=== PATIENT | female | born 1975 | race Caucasian/White ===

== ENCOUNTER 2025-01-12 21:56 | Inpatient (IN) | payer MEDICARE, OTHER, SELFPAY ==
[2025-01-12 18:29] VITALS: BP 165/89
[2025-01-12 18:32] LABS: Glucose - Point of Care 389 mg/dl (70-99)
[2025-01-12 18:56] LABS: Venous Blood Gas B.E. -1.5 mmol/L (-4 to +4); Venous Blood Gas HCO3 24.3 mmol/L (22-27); Venous Blood Gas O2 Sat % 84.7 %; Venous Blood Gas pCO2 45 mmHg (35-48); Venous Blood Gas pH 7.34 (7.32-7.43); Venous Blood Gas pO2 51 mmHg (30-50)
[2025-01-12 19:02] LABS: Urine Albumin 2+ (Neg - Trace); Urine Bilirubin Negative (Negative); Urine Character Slightly Cloudy (Clear); Urine Color Yellow; Urine Glucose 4+ (Negative); Urine Ketone Negative (Negative); Urine Leukocyte 1+ (Negative); Urine Nitrite Negative (Negative); Urine Occult Blood 1+ (Negative); Urine Urobilinogen Negative (Neg - 1+)
[2025-01-12 19:04] LABS: % Basophils 0.4 % (0-2); % Eosinophils 0.3 % (0-6); % Immature Granulocytes 0.3 % (0-0.5); % Lymphocytes 10.1 % (20.5-51.1); % Monocytes 3.9 % (1.7-9.3); Absolute Basophils 0.1 10^3/uL (0-0.2); Absolute Lymphocytes 1.2 10^3/uL (1.2-3.4); Absolute Monocytes 0.5 10^3/uL (0.1-0.6); Absolute Neutrophils 9.8 10^3/uL (1.4-6.5); Hematocrit 28.8 % (37.0-47.0); Hemoglobin 7.6 g/dL (12.0-16.0); Mean Corp Hgb Conc. 26.4 g/dL (33.0-37.0); Mean Corpuscular Hgb 16.2 pg (27.0-31.0); Mean Corpuscular Volume 61.4 fL (81.0-99.0); Nucleated Red Blood Cells % 0.3 %; Platelet Count 279 10^3/uL (130-400); Red Blood Cell Count 4.69 10^6/uL (4.20-5.40); Red Cell Dist. Width 21.1 % (11.5-14.5); White Blood Cell Count 11.5 10^3/uL (4.8-10.8)
[2025-01-12 19:10] LABS: Lactic Acid 1.9 mmol/L (0.7-2.0)
[2025-01-12 19:11] LABS: ALT (SGPT) 26 U/L (0-35); AST (SGOT) 27 U/L (14-36); Albumin 4.4 g/dl (3.5-5.0); Alkaline Phosphatase 155 U/L (38-126); Blood Urea Nitrogen 6 mg/dl (7-17); Carbon Dioxide 25 mmol/L (22-30); Chloride 102 mmol/L (98-107); Glucose 351 mg/dl (70-99); Potassium 4.4 mmol/L (3.5-5.1); Sodium 135 mmol/L (135-145); Total Bilirubin 0.6 mg/dl (0.2-1.3); Total Protein 8.1 g/dl (6.3-8.2); eGFR > 60.00
[2025-01-12 19:18] LABS: B-Hydroxybutyrate 0.13 mmol/L (0.02-0.27)
[2025-01-12 19:25] LABS: Anisocytosis 1+; Hypochromasia 3+; Microcytosis 4+; Normal RBC Morphology No; Ovalocytes 1+; Poikilocytosis 1+; Polychromasia Slight; Stomatocytes 1+
[2025-01-12] MEDS: NSS 1000 IV ×2 (19:34→23:58)
--- NOTE | 2025-01-12 19:43 | ED.GENMED ---
History of Present Illness
<AMIE Mcneal - Last Filed: 01/12/25 19:54>
General
Chief Complaint: Blood Sugar Problem
Source: patient
Time Seen by Provider: 01/12/25 18:59
History of Present Illness
History of Present Illness:
Pt is a 49 yo F with a PMH of T2DM, GERD, NIKKO, chronic constipation, Hep C w/o coma, Bipolar II, and PTSD who presents to the ED c/o nausea, vomiting, left sided numbness, and elevated blood sugar x 1 day. Patient explains that she started having
migraines 2 weeks ago which she attributed to an increase in her coffee intake and perhaps elevated blood sugars, but she has been without a way to monitor her own blood sugars for roughly 1 month now. She then notes that last night she was at [employer]
and started to feel dizzy and lightheaded. She held on to the counter briefly and then was able to make her way to her car, where she started having profuse projectile vomiting. After 30 minutes or so, she was able to drive home, having to stop
twice along her route to vomit. The vomiting continued throughout the night and into today, she notes the last time she vomited was at 6pm tonight. Her current T2DM regimen includes Metformin and Farxiga after she was unable to continue with
Trulicity due to unavailability. She explains that today she feels as though her entire left side is numb, from head to toe, stating it is a 'pins and needles' type of feeling. She is able to ambulate. She denies sick contacts, questionable food
intake, hematemesis, changes to bowel or bladder habits, dyspnea, or other associated symptoms.
<Giuseppe Langford DO - Last Filed: 01/13/25 01:47>
General
Exam Limitations: none
Past History
<AMIE Mcneal - Last Filed: 01/12/25 19:54>
Past History
ED Past Medical History: NIDDM, Psychiatric and Other
ED Past Surgical History: Gynecological
Social History
Tobacco: Smoker
Alcohol: Occasional
Drug: Former user and IVDA
Personal: Single
Living: with family
Review of Systems
<Marge Quinones [facility] - Last Filed: 01/12/25 19:54>
Review of Systems
All Other Systems: ROS reviewed and negative except as documented in HPI and ROS
Phy Exam
<Marge Quinones, [facility] - Last Filed: 01/12/25 19:54>
General Physical Exam
General Presentation: well appearing
General age: appears stated age
General Skin: warm and dry
General Habitus: normal
General Mental: alert
Cardiovascular Exam
Cardiovascular Exam: regular rate/rhythm
Heart Sounds: normal
Pulmonary Exam
Pulmonary Exam: lungs clear
Gastrointestinal Exam
Gastrointestinal Exam: normal bowel sounds, non tender, soft and no cva tenderness
Neurological Exam
Neurological Exam: alert, oriented x3, speech normal and sensory deficit (decreased sensation on L forearm)
Scores
<Giuseppe Langford, DO - Last Filed: 01/13/25 01:47>
NIH Stroke Score
Level of Consciousness: 0 - Alert
LOC Questions: 0-Answers both correctly
LOC Commands: 0-Performs both correctly
Best Horizontal Gaze: 0-Normal
Visual Arreola: 0=Normal, no visual loss
Facial Palsy: 0=Normal, symmetrical
Motor - Right Arm: 0=No drift 10 seconds
Motor - Left Arm: 0=No drift 10 seconds
Motor - Right Le-No drift 5 seconds
Motor - Left Le-No drift 5 seconds
Limb Ataxia: 0-Absent
Sensation: 1-Mild loss
Best Language: 0-No aphasia
Dysarthria: 0-Normal
Extinction and Inattention: 0-No abnormality
NIH Total Score:: 1
Thrombolytic Contraindication
Inclusion and Exclusion criteria reviewed: Yes
Reasons for NON-Tx with Thrombolytics ABSOLUTE Exclusions: Greater than 4.5 hrs from onset of sxs
IAT Contraindications: NIHSS < 6
Course
<Marge Quinones, [facility] - Last Filed: 01/12/25 19:54>
Orders/Labs/Results
Orders:
Orders
01/12/25 18:46
B-Hydroxybutyrate Urgent
Complete Blood Count/With Diff Urgent
Comprehensive Metabolic Panel Urgent
Lactic Acid Urgent
Venous Blood Gas Urgent
%Oxygen/Room Air: room air
01/12/25 18:56
Urine Microscopic Reflex Cult Urgent
Urine Reflex Culture from UA [Urinalysis Reflex To Culture] Urgent
Date Specimen was Collected: 01/12/25
Time Specimen was Collected: 18:32
Urine Culture Urgent
BETH Source: U
Specimen Description:
Date Specimen was Collected: 01/12/25
Time Specimen was Collected: 18:32
01/12/25 19:17
0.9% Sodium Chloride 1000 ml [Nss] 1,000 ml IV BOLUS
01/12/25 19:18
IV Insert/Care/Rem.- Treatment PRN
01/12/25 19:32
EKG- Treatment ONCE
01/12/25 19:33
Electrocardiogram (*1) Urgent
Reason for Study: TIA/Stroke
01/12/25 19:40
CT Head W/o Iv Contrast Urgent
Comment:
Reason For Exam: left sided numbness
01/12/25 20:37
Aspirin Chewable [Low Strength Aspirin] 324 mg PO NOW STA
Atorvastatin [Lipitor] 40 mg PO NOW STA
Clopidogrel Bisulfate [Plavix] 300 mg PO NOW STA
01/12/25 21:13
ECG [Electrocardiogram (*1)] Routine
Reason for Study: QTc Monitoring
01/12/25 21:27
Admit/Transfer Patient As Directed
Co-Sign Provider:
Level of Care: Inpatient admission
Assign to:: Telemetry
Physician / Group: dina
Diagnosis: subacute CVA
Reason for Telemetry: CVA/TIA
Date to Stop Telemetry: 01/15/25
Time to Stop Telemetry: 11:00
Reason for Hospitalization: CVA
Expected length of stay greater than two midnights?: Yes
ELOS- Estimated Length of Stay in days: 2
I certify the patient meets the requirements for IP care: Yes
PRN Pain Medication Management As Directed
May give lesser potent ordered pain med per pt: Yes
preference::
Protocol:: Medication orders for pain may be administered in a
manner that supports deferring to patient preference
when the pt is:
- Requesting an ordered lesser potent pain medication.
Least to most potent pain medications are defined
as: acetaminophen < NSAID < tramadol < opioids
(morphine, oxycodone, hydromorphone).
- Requesting a lesser dose of the same medication IF
ORDERED.
- Requesting a less intrusive route of administration
if both routes are prescribed by the provider (PO <
IV).
01/12/25 21:29
Code Status As Directed
Resuscitation Status: Full Code
01/12/25 22:00
Flush (0.9% Sodium Chloride) [Flush (Nss)] See Dose Instructions IV PER PROTOCOL
01/12/25 22:57
0.9% Sodium Chloride 1000 ml [Nss] 1,000 ml IV 100 mls/hr
Acetaminophen [Tylenol/Feverall] 650 mg RECTAL Q4HPRN PRN
Acetaminophen [Tylenol] 650 mg PO Q4HPRN PRN
Clonidine [Catapres] 0.1 mg PO HS
Labetalol HCl [Trandate] 10 mg IV Q6HPRN PRN
Metoclopramide [Reglan] 10 mg IV Q6HPRN PRN
01/12/25 22:57
Echo 2D MMode Color/Doppler Routine
Reason for Study: stroke/TIA
Case Management Consult ONCE
Case Management Consult: Discharge Planning
Comment: stroke/tia
DIETARY IP CONSULT Routine
Reason for Consult: stroke/TIA
NEUROLOGY CONSULT Urgent
Consulting Provider: Reilly Hardy
Was physician already notified: Yes
Bread Pan Greaser Urgent
MR Brain Without Contrast Routine
Comment:
Reason For Exam: stroke/TIA
Recent pill cam endoscopy?: No
Activity As Directed
Activity Level: With Assistance
Bedside Glucose Monitoring As Directed
Frequency: AC&HS
NIH Stroke Scale As Directed
Directions: Per protocol
Comment: every shift and with any change in condition or mental status
Neurological Checks As Directed
Frequency: q4h
Additional Instructions:: q4h x 24h upon admission to the floor, then qshift & with any change in condition
and mental status
Patient Education As Directed
Type: Stroke education packet
Comment: provide to patient and family
Pneumatic Compression Sleeves As Directed
Type: Knee high
Swallow Screening CVA/TIA ONLY As Directed
Comment: NPO until swallowing screening completed
If patient FAILS swallow screening:: NPO, Speech Therapy consult, Aspiration Precautions
If patient PASSES swallow screening, diet:: 1800 josue/ 15 CHO Diabetic
Above diet order entered?: Yes- passed screening
Vital Signs As Directed
Frequency: Per unit guidelines
Ot Eval And Treat Routine
Pt Eval And Treat Routine
Activity Level: As Tolerated
Speech Therapy Eval & Treat Routine
US Cerebrovascular Routine
Comment:
Reason For Exam: stroke/TIA
DX Deep Vein Thrombosis Video Routine
01/12/25 23:00
Quetiapine Fumarate [Seroquel] 100 mg PO HS
01/13/25 06:00
Type+Screen IN AM
Basic Metabolic Panel IN AM
Cardiovascular Evaluation IN AM
Complete Blood Count/No Diff IN AM
Ferritin IN AM
Glycohemoglobin (HgbA1c) IN AM
Iron IN AM
Magnesium IN AM
Total Iron Binding IN AM
01/13/25 07:30
Insulin Aspart Corrective Mod [Novolog Flexpen-Moderate Resistance] See Protocol SC AC
01/13/25 08:00
Aspirin Chewable [Low Strength Aspirin] 81 mg PO DAILY
Clopidogrel Bisulfate [Plavix] 75 mg PO DAILY
Lamotrigine [Lamictal] 200 mg PO DAILY
[place] Carbonate Ext. Release [Eskalith ER (Extended Release)] 450 mg PO BID
METFORMIN HCl [Glucophage] 500 mg PO BID@0800,1700
Methadone HCl [Methadone 100 mg/10 ml] 100 mg PO DAILY
01/13/25 18:00
Atorvastatin [Lipitor] 80 mg PO QPM
01/15/25 11:00
DC Protocol for Telemetry ONCE
Abnormal Lab Results
01/12/25 01/12/25 01/12/25
18:30 18:46 18:56
WBC 11.5 H 10^3/uL
(4.8-10.8)
Hgb 7.6 L g/dL
(12.0-16.0)
Hct 28.8 L %
(37.0-47.0)
MCV 61.4 L fL
(81.0-99.0)
MCH 16.2 L pg
(27.0-31.0)
MCHC 26.4 L g/dL
(33.0-37.0)
RDW 21.1 H %
(11.5-14.5)
Absolute Neuts (auto) 9.8 H 10^3/uL
(1.4-6.5)
Neutrophils % 85.0 H %
(42.2-75.2)
Lymphocytes % 10.1 L %
(20.5-51.1)
VBG pO2 51 H mmHg
(30-50)
BUN 6 L mg/dl
(7-17)
Glucose 351 H mg/dl
(70-99)
Alkaline Phosphatase 155 H U/L
(38-126)
Ur Occult Blood Reflex 1+ A
(Negative)
Leukocyte Esterase Rfl 1+ A
(Negative)
Urine RBC 3-6 A /HPF
(0-2)
Urine Glucose 4+ A
(Negative)
Urine Albumin (Reflex) 2+ A
(Neg - Trace)
POC Glucose 389 H mg/dl
(70-99)
01/12/25 18:46
01/12/25 18:46
Vital Signs
Initial and Last Documented VS:
Initial Vital Signs
Temp Pulse Resp BP Pulse Ox
98.2 F 111 20 165/89 98
01/12/25 18:29 01/12/25 18:29 01/12/25 18:29 01/12/25 18:29 01/12/25 18:29
Last Documented Vital Signs
Temp Pulse Resp BP Pulse Ox
98.7 F 75 18 143/65 98
01/12/25 23:16 01/12/25 23:28 01/12/25 23:16 01/12/25 23:28 01/12/25 23:16
Randolphlt;Giuseppe Langford, DO - Last Filed: 01/13/25 01:47>
Orders/Labs/Results
Orders:
Orders
01/12/25 18:46
B-Hydroxybutyrate Urgent
Complete Blood Count/With Diff Urgent
Comprehensive Metabolic Panel Urgent
Lactic Acid Urgent
Venous Blood Gas Urgent
%Oxygen/Room Air: room air
01/12/25 18:56
Urine Microscopic Reflex Cult Urgent
Urine Reflex Culture from UA [Urinalysis Reflex To Culture] Urgent
Date Specimen was Collected: 01/12/25
Time Specimen was Collected: 18:32
Urine Culture Urgent
BETH Source: U
Specimen Description:
Date Specimen was Collected: 01/12/25
Time Specimen was Collected: 18:32
01/12/25 19:17
0.9% Sodium Chloride 1000 ml [Nss] 1,000 ml IV BOLUS
01/12/25 19:18
IV Insert/Care/Rem.- Treatment PRN
01/12/25 19:32
EKG- Treatment ONCE
01/12/25 19:33
Electrocardiogram (*1) Urgent
Reason for Study: TIA/Stroke
01/12/25 19:40
CT Head W/o Iv Contrast Urgent
Comment:
Reason For Exam: left sided numbness
01/12/25 20:37
Aspirin Chewable [Low Strength Aspirin] 324 mg PO NOW STA
Atorvastatin [Lipitor] 40 mg PO NOW STA
Clopidogrel Bisulfate [Plavix] 300 mg PO NOW STA
01/12/25 21:13
ECG [Electrocardiogram (*1)] Routine
Reason for Study: QTc Monitoring
01/12/25 21:27
Admit/Transfer Patient As Directed
Co-Sign Provider:
Level of Care: Inpatient admission
Assign to:: Telemetry
Physician / Group: dina
Diagnosis: subacute CVA
Reason for Telemetry: CVA/TIA
Date to Stop Telemetry: 01/15/25
Time to Stop Telemetry: 11:00
Reason for Hospitalization: CVA
Expected length of stay greater than two midnights?: Yes
ELOS- Estimated Length of Stay in days: 2
I certify the patient meets the requirements for IP care: Yes
PRN Pain Medication Management As Directed
May give lesser potent ordered pain med per pt: Yes
preference::
Protocol:: Medication orders for pain may be administered in a
manner that supports deferring to patient preference
when the pt is:
- Requesting an ordered lesser potent pain medication.
Least to most potent pain medications are defined
as: acetaminophen < NSAID < tramadol < opioids
(morphine, oxycodone, hydromorphone).
- Requesting a lesser dose of the same medication IF
ORDERED.
- Requesting a less intrusive route of administration
if both routes are prescribed by the provider (PO <
IV).
01/12/25 21:29
Code Status As Directed
Resuscitation Status: Full Code
01/12/25 22:00
Flush (0.9% Sodium Chloride) [Flush (Nss)] See Dose Instructions IV PER PROTOCOL
01/12/25 22:57
0.9% Sodium Chloride 1000 ml [Nss] 1,000 ml IV 100 mls/hr
Acetaminophen [Tylenol/Feverall] 650 mg RECTAL Q4HPRN PRN
Acetaminophen [Tylenol] 650 mg PO Q4HPRN PRN
Clonidine [Catapres] 0.1 mg PO HS
Labetalol HCl [Trandate] 10 mg IV Q6HPRN PRN
Metoclopramide [Reglan] 10 mg IV Q6HPRN PRN
01/12/25 22:57
Echo 2D MMode Color/Doppler Routine
Reason for Study: stroke/TIA
Case Management Consult ONCE
Case Management Consult: Discharge Planning
Comment: stroke/tia
DIETARY IP CONSULT Routine
Reason for Consult: stroke/TIA
NEUROLOGY CONSULT Urgent
Consulting Provider: Reilly Hardy
Was physician already notified: Yes
Bread Pan Greaser Urgent
MR Brain Without Contrast Routine
Comment:
Reason For Exam: stroke/TIA
Recent pill cam endoscopy?: No
Activity As Directed
Activity Level: With Assistance
Bedside Glucose Monitoring As Directed
Frequency: AC&HS
NIH Stroke Scale As Directed
Directions: Per protocol
Comment: every shift and with any change in condition or mental status
Neurological Checks As Directed
Frequency: q4h
Additional Instructions:: q4h x 24h upon admission to the floor, then qshift & with any change in condition
and mental status
Patient Education As Directed
Type: Stroke education packet
Comment: provide to patient and family
Pneumatic Compression Sleeves As Directed
Type: Knee high
Swallow Screening CVA/TIA ONLY As Directed
Comment: NPO until swallowing screening completed
If patient FAILS swallow screening:: NPO, Speech Therapy consult, Aspiration Precautions
If patient PASSES swallow screening, diet:: 1800 josue/ 15 CHO Diabetic
Above diet order entered?: Yes- passed screening
Vital Signs As Directed
Frequency: Per unit guidelines
Ot Eval And Treat Routine
Pt Eval And Treat Routine
Activity Level: As Tolerated
Speech Therapy Eval & Treat Routine
US Cerebrovascular Routine
Comment:
Reason For Exam: stroke/TIA
DX Deep Vein Thrombosis Video Routine
01/12/25 23:00
Quetiapine Fumarate [Seroquel] 100 mg PO HS
01/13/25 06:00
Type+Screen IN AM
Basic Metabolic Panel IN AM
Cardiovascular Evaluation IN AM
Complete Blood Count/No Diff IN AM
Ferritin IN AM
Glycohemoglobin (HgbA1c) IN AM
Iron IN AM
Magnesium IN AM
Total Iron Binding IN AM
01/13/25 07:30
Insulin Aspart Corrective Mod [Novolog Flexpen-Moderate Resistance] See Protocol SC AC
01/13/25 08:00
Aspirin Chewable [Low Strength Aspirin] 81 mg PO DAILY
Clopidogrel Bisulfate [Plavix] 75 mg PO DAILY
Lamotrigine [Lamictal] 200 mg PO DAILY
[place] Carbonate Ext. Release [Eskalith ER (Extended Release)] 450 mg PO BID
METFORMIN HCl [Glucophage] 500 mg PO BID@0800,1700
Methadone HCl [Methadone 100 mg/10 ml] 100 mg PO DAILY
01/13/25 18:00
Atorvastatin [Lipitor] 80 mg PO QPM
01/15/25 11:00
DC Protocol for Telemetry ONCE
Abnormal Lab Results
01/12/25 01/12/25 01/12/25
18:30 18:46 18:56
WBC 11.5 H 10^3/uL
(4.8-10.8)
Hgb 7.6 L g/dL
(12.0-16.0)
Hct 28.8 L %
(37.0-47.0)
MCV 61.4 L fL
(81.0-99.0)
MCH 16.2 L pg
(27.0-31.0)
MCHC 26.4 L g/dL
(33.0-37.0)
RDW 21.1 H %
(11.5-14.5)
Absolute Neuts (auto) 9.8 H 10^3/uL
(1.4-6.5)
Neutrophils % 85.0 H %
(42.2-75.2)
Lymphocytes % 10.1 L %
(20.5-51.1)
VBG pO2 51 H mmHg
(30-50)
BUN 6 L mg/dl
(7-17)
Glucose 351 H mg/dl
(70-99)
Alkaline Phosphatase 155 H U/L
(38-126)
Ur Occult Blood Reflex 1+ A
(Negative)
Leukocyte Esterase Rfl 1+ A
(Negative)
Urine RBC 3-6 A /HPF
(0-2)
Urine Glucose 4+ A
(Negative)
Urine Albumin (Reflex) 2+ A
(Neg - Trace)
POC Glucose 389 H mg/dl
(70-99)
01/12/25 18:46
01/12/25 18:46
Vital Signs
Initial and Last Documented VS:
Initial Vital Signs
Temp Pulse Resp BP Pulse Ox
98.2 F 111 20 165/89 98
01/12/25 18:29 01/12/25 18:29 01/12/25 18:29 01/12/25 18:29 01/12/25 18:29
Last Documented Vital Signs
Temp Pulse Resp BP Pulse Ox
98.7 F 75 18 143/65 98
01/12/25 23:16 01/12/25 23:28 01/12/25 23:16 01/12/25 23:28 01/12/25 23:16
<Giuseppe Langford DO - Last Filed: 01/13/25 01:47>
MDM/Problems Addressed
Differential Diagnosis Includes:
Intracranial hemorrhage, CVA, DKA
MDM/Problems Addressed:
49-year-old female with acute/subacute CVA, left cerebellum. No signs of hemorrhage. Discussed with neurology, Dr. Hardy. Recommends dual antiplatelet therapy, loading dose of Plavix 300 and Lipitor. Patient is already taking Lipitor 60 mg.
Chronic conditions affecting care: DM
Acute Exacerbation and/or Progression of Chronic Illness: DM
<AMIE Mcneal - Last Filed: 01/12/25 19:54>
*Critical Care Note
Total Time (30-74mins, 75-104mins- exclusive of procedures): Not Applicable
<Giuesppe Langford DO - Last Filed: 01/13/25 01:47>
*Radiology
Radiology exam reviewed: radiology read reviewed (CT head shows left cerebellar infarct)
*Pulse Oximetry
Patient hypoxic: no
*EKG
Interpreted by ED Provider?: Yes
EKG Intrepretation Date: 01/12/25
EKG Intrepretation Time: 20:27
Interpretation: normal
Comparison EKG: no changes
Heart Rate: 82
Rate: normal
Rhythm: sinus
Steens: normal axis
Interval: normal interval
QRS Pattern: normal QRS
Ischemia: no ischemia
*Bakery Demonstrator Interpretation
Rate: normal
Interpretation: normal
Heart Rate: 80
Rhythm: sinus
Data Reviewed
Review of Other/Old Records Reveals: Labs (prior Hb 15.4 on 08/01/20)
Source: records
Prescriptions/Medications Considered But Not Given:
TNK not indicated due to timing
Further Testing Considered But Not Given:
cta not indicated
<Giuseppe Langford, DO - Last Filed: 01/13/25 01:47>
Patient Management
Social determinants of health affecting care: Living situation, Substance abuse and Strong social support
Discussion with other providers: Hospitalist and Career Technical Education Instructor (neurology)
Escalation/DeEscalation of care consider admission/obs:
admit indicated
ED Attending Note
<AMIE Mcneal - Last Filed: 01/12/25 19:54>
-
Portions of this chart may have been created with voice recognition software.� Occasional wrong word or��sound alike� substitutions may have occurred due to the inherent limitations of voice recognition software.
Discharge Plan
Departure
Patient Disposition: Admit
Date of Disposition: 01/12/25
Time of Disposition: 20:33
Admit to: Telemetry
Presentation/result/management discussed w/ accepting MD/DO: Hospitalist
Patient with high blood pressure during this ER visit?: Yes
Condition: Good
Discharge Problem:
Acute cerebrovascular accident of cerebellum
Interventions
Interventions:
*Risk Screen - Suicide Last Done: 01/12/25 23:41
*General Assessment Last Done: 01/12/25 18:29
*Neglect/Abuse Screening Last Done: 01/12/25 19:36
*ED- Fall Risk Assessment Last Done: 01/12/25 19:36
*ED COVID-19 Vaccine History Last Done: 01/12/25 23:41
*Nursing Disposition Last Done: 01/12/25 22:53
ED- Neurological Assessment Last Done: 01/12/25 20:49
Discharge Date and Time
Discharge Date/Time: 01/12/25 22:53
[2025-01-12] MEDS: PLAVIX 300 MG PO (21:04)
[2025-01-12] MEDS: LOW STRENGTH ASPIRIN 324 MG PO (21:04)
--- NOTE | 2025-01-12 21:13 | HPS.HSE ---
Family Physician
-
Family Physician: Adele Harrington
Chief Complaint
-
Elevated blood glucose
History of Present Illness
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
checking blood sugar and finding that it was elevated in the setting of episode of dizziness and continuous vomiting.
Patient reported she had a sudden episode of dizziness starting at around 8 PM yesterday. She reports spinning sensation afterwards. Tyrone reported left sided numbness and tingling throughout whole body. This was associated with vomiting episode.
She went home and she continued to vomit overnight. This morning she checked her blood sugar and it was elevated over 300. She said to come to the emergency department for evaluation. She did not have any further episodes of the dizziness. She
reports that the dizziness was associated with vertigo when it occurred yesterday at 8 PM. She is able to ambulate without difficulty. She denies any focal weakness or numbness. She denies any fevers or chills.
She was previously on trulicity but has not taken this for several months due to pharmacy shortages/insurance.
She reported episodes of migraine that started about 2 weeks ago appears to be ocular migraines associated with some vision changes. She has not had such episodes today.
In the emergency department she was hypertensive with a blood pressure of 165/89, pulse rate of 89 she was satting 98% on room air with a temperature of 90.2.
Her hemoglobin was 7.6, white count was normal platelet count was normal. Electrolytes BUN/creatinine were all normal with no anion gap. Glucose was elevated at 351. UA was unremarkable and had no ketones. Beta-hydroxybutyrate was negative.
CT of the head showed possible subacute left cerebral infarct.
Medical History
Past Medical History
Past Medical History: Reports Hypercholesterolemia, NIDDM and Psychiatric (Bipolar)
Additional Past Medical History:
Prior history of IV heroin use now on methadone
Past Surgical History: Reports Gynocological (Tubal ligation)
Social History
Tobacco: Smoker
Alcohol: None
Drug: None
Personal: Single
Living: With Roomate
Family History
Family History: Not pertinent
Allergies / Home Medications
Allergies reflects when Allergies were last updated in [facility].
Home Medications with original date entered in [facility]
Allergy/Medication List:
Allergies
Allergy/AdvReac Type Severity Reaction Status Date / Time
No Known Allergies Allergy Verified 01/12/25 18:29
Home Medications
Metformin 500 mg tablet, 500 mg p.o. at bedtime
Atorvastatin 80 mg tablet, 80 mg p.o. at bedtime
[place] carbonate extended release 450 mg tablet, 50 mg p.o. twice daily
Lamotrigine 100 mg tablet, 100 mg p.o. daily
Quetiapine 200 mg tablet, 200 mg p.o. at bedtime
Clonidine 0.1 mg tablets, 0.1 mg p.o. at bedtime
Methadone 100 mg tablet, 100 mg p.o. daily
Review of Systems
-
History Source: Patient
Constitutional: Reports No Symptoms
EENT: Reports No Symptoms
Respiratory: Reports No Symptoms
Cardiac: Reports No Symptoms
Abdomen/GI: Reports Nausea
: Reports No Symptoms
Musculoskeletal: Reports No Symptoms
Skin: Reports No Symptoms
Neurological: Reports Dizzy
Endocrine: Reports No Symptoms
Hematologic/Lymphatic: Reports No Symptoms
Psych: Reports No Symptoms
Physical Exam
Vital Signs
Vital Signs
Temp Pulse Resp BP Pulse Ox
98.2 F 89 17 165/89 98
01/12/25 18:29 01/12/25 19:39 01/12/25 19:39 01/12/25 18:29 01/12/25 20:49
Physical Exam
General: Well Developed, Well Nourished, No Apparent Distress and Comfortable
HEENT: NormoCephalic, Anicteric, Moist mucous membranes and Atraumatic
Respiratory: Clear
Cardiac: S1/S2 and Regular Rhythm
Breast: Deferred by me
GI: Soft, Non Tender, Non Distended and Normal Bowel Sounds
Rectal: Deferred by Provider
Genito-urinary: Deferred by me
Musculoskeletal: No Clubbing, No Cyanosis and No Edema
Skin: No Rash
Neuro: AO x 3, No Motor Deficits and Cranial Nerves Intact; No Slurred Speech, Facial Droop or Tremors
Hematologic/Lymphatic: No Lymphadenopathy
Psych: Calm
Laboratory Results
-
01/12/25 18:46
01/12/25 18:46
Laboratory Results
Lactic Acid 1.9 mmol/L (0.7-2.0) 01/12/25 18:46
Total Bilirubin 0.6 mg/dl (0.2-1.3) 01/12/25 18:46
AST 27 U/L (14-36) 01/12/25 18:46
ALT 26 U/L (0-35) 01/12/25 18:46
Alkaline Phosphatase 155 U/L (38-126) H 01/12/25 18:46
Data Reviewed
-
CT Scan: Report Reviewed by me
Lab Data: Labs Reviewed by me
Old Records: Reviewed
Impression/Plan
-
IMPRESSION:
49 y.o with history of diabetes, hyperlipidemia, bipolar d/o, former opioid dependence now on methadone presenting with dizziness starting 8-9pm yesterday, associated nausea vomiting and found to have hyperglycemia and L cerebellar cva.
PLAN:
1. Cerebellar stroke - Presumed onset about 24 hours ago. Now NIHSS = 0. Able to ambulate without dizziness or vertigo and no nausea at this moment.
- admit to telemetry
- out of window and minimal symptoms, no TNK
- starting aspirin, plavix
- continue atorvastatin 80
- mri in am
- vascular/embolic eval with mr sokaogon of thao and mra neck.
- echo
- lipid panel and ac
- pt
- neurology consult.
2. Hyperglycemia - Non-compliance. No DKA.
- IV fluids overnight
- insulin sliding scale
- a1c
- likely start on insulin 10 hs
- continue with metformin bid for now
3. Anemia - microcytic, likely iron deficiency
- iron panel, ferritin
- likely outpatient colonoscopy
4. Opioid dependence
- ecg
- continue methadone 100 daily
5. Bipolar
- continue lithium hs, lamictal am, quetiapine and clonidine hs
DVT PPX - SCDs
Code status - Full Code
[2025-01-12 23:16] VITALS: BP 143/65; BMI 38.3
[2025-01-12] MEDS: SEROQUEL 100 MG PO (23:25)
[2025-01-12] MEDS: CATAPRES 0.1 MG PO (23:28)
[2025-01-13] VITALS (13 sets, daily range): BP systolic 97–147; BP diastolic 49–81; PULSE 79; O2SAT 99
--- NOTE | 2025-01-13 01:03 | PTCARENOTE ---
2300- pt admitted to 406-1, placed on tele #6. NIH-1 for decrease sensation LT side from head down, pt states notable increase in loss of sensation once you reach the LT elbow, over all mild loss. Pt oriented to room, call diallo, and POC. pt verb
understanding. admission assessment completed
[2025-01-13] MEDS: TYLENOL 650 MG PO ×3 (03:25→22:16)
[2025-01-13 07:00] LABS: Hematocrit 23.8 % (37.0-47.0); Hemoglobin 6.3 g/dL (12.0-16.0); Mean Corp Hgb Conc. 26.5 g/dL (33.0-37.0); Mean Corpuscular Hgb 16.2 pg (27.0-31.0); Mean Corpuscular Volume 61.3 fL (81.0-99.0); Mean Platelet Volume 9.5 fL (7.4-10.4); Platelet Count 242 10^3/uL (130-400); Red Blood Cell Count 3.88 10^6/uL (4.20-5.40); Red Cell Dist. Width 20.7 % (11.5-14.5); White Blood Cell Count 9.8 10^3/uL (4.8-10.8)
[2025-01-13 07:19] LABS: Blood Urea Nitrogen 7 mg/dl (7-17); Calcium 8.8 mg/dl (8.4-10.2); Carbon Dioxide 25 mmol/L (22-30); Chloride 108 mmol/L (98-107); Estimated Creatinine Clearance > 125 ml/min; Glucose 204 mg/dl (70-99); HDL Cholesterol 30 mg/dl; Iron 26 ug/dl (37-170); LDL Cholesterol, Calculated 60 mg/dl; Magnesium 1.9 mg/dl (1.6-2.3); Potassium 3.9 mmol/L (3.5-5.1); Sodium 136 mmol/L (135-145); Total Cholesterol 130 mg/dl (50-199); Triglyceride 200 mg/dl (10-149); Very Low Density Lipoprotein 40 mg/dl (0-30); eGFR > 60.00
[2025-01-13 07:28] LABS: Percent Saturation 6 % (20-50); Total Iron Binding Capacity 422 ug/dl (265-497)
[2025-01-13 07:47] LABS: Ferritin 9.2 ng/ml (6.24-137)
[2025-01-13] MEDS: LAMICTAL PO (08:48)
[2025-01-13] MEDS: ESKALITH ER (EXTENDED RELEASE) PO (08:48)
[2025-01-13 08:54] LABS: Reticulocyte Count 1.8 % (0.4-2.8)
[2025-01-13 09:34] LABS: Glycohemoglobin (HgbA1c) 9.2 % (4.0-5.6)
[2025-01-13 09:39] LABS: Glucose - Point of Care 253 mg/dl (70-99)
[2025-01-13] MEDS: FEOSOL 325 MG PO (10:15)
[2025-01-13] MEDS: PLAVIX 75 MG PO (10:15)
[2025-01-13] MEDS: LOW STRENGTH ASPIRIN 81 MG PO (10:15)
[2025-01-13] MEDS: NOVOLOG FLEXPEN-MODERATE RESISTANCE 5 UNITS SC (10:15)
[2025-01-13] MEDS: METHADONE 100 MG/10 ML PO (10:18)
[2025-01-13 10:36] LABS: Vitamin B12 508 pg/ml (239-931)
--- NOTE | 2025-01-13 11:38 | W.PN.HOSP.TC ---
Today's Communication/Plan
-
prbc 1u today
iv iron
asa/plavix
neurology recs
neurocheck
Assessment / Plan
Assessment / Plan
IMPRESSION:
49 y.o with history of diabetes, hyperlipidemia, bipolar d/o, former opioid dependence now on methadone presenting with dizziness starting 8-9pm yesterday, associated nausea vomiting and found to have hyperglycemia and L cerebellar cva.
PLAN:
Large Acute CVA left cerebellum. Mild petechial hemorrhage
Right cerebellum infarcts x 2
- out of window no TNK
- starting aspirin, plavix
- continue atorvastatin 80
- mri brain noted
- echo-EF 55-60%. Interartial septum is intact w/no evidence of shunting by color flow doppler.
- LDL at 60. A1c 9.2.
- pt/ot
- BP well controlled as already on clonidine as outpatient 128/54
- neurology consult.
Diabetes mellitus type 2 uncontrolled
-A1c at 9.2
-Increase metformin to 1000 mg twice daily
- started patient on glipizide
-Accu-Cheks and monitor POC
-Adjust regimen as needed
Anemia - microcytic, likely iron deficiency
- Severe iron deficiency noted. Patient states of chronic anemia.
- Denies any blood in urine or stool. Patient is due for colonoscopy. Denies any change in consistency of bm. Denies any weight loss.
- Start patient IV iron
- Hemoglobin of 6.3 will transfuse 1 unit of PRBC today.
- likely outpatient colonoscopy
Opioid dependence On daily basis
- ecg QTc of 453
- continue methadone 100 mg daily
Bipolar disorder
- continue lithium hs, lamictal am, quetiapine and clonidine hs
daily tobacco abuse
-Smokes 1 pack a day
-Nicotine patch offered
-Counseled on complete tobacco cessation. Patient verbalized understanding.
Morbid obesity due to excess calories
affects all aspect of medical care
DVT PPX - SCDs
Code status - Full Code
Anticipated Discharge: > 48 hours
Subjective/Interval History
-
Date of Service: January 13, 2025
states of left side decrease sensation
no nausea or vomiting
states not compliant with her health as outpatient
Objective Data
-
Labs:
Laboratory Results
01/13/25
06:06
WBC 9.8
Hgb 6.3 L*
Hct 23.8 L
Plt Count 242
Sodium 136
Potassium 3.9
Chloride 108 H
Carbon Dioxide 25
BUN 7
Creatinine 0.6
Glucose 204 H
Calcium 8.8
Vital Signs:
Vital Signs
Temp Pulse Resp BP Pulse Ox
98.2 F 80 18 128/54 97
01/13/25 07:00 01/13/25 07:00 01/13/25 07:00 01/13/25 07:00 01/13/25 07:00
I&O
01/12/25 01/13/25 01/14/25
06:59 06:59 06:59
Intake Total 1700 / 1700
Balance 1700 / 1700
Physical Exam
-
General: Well Developed, No Apparent Distress and Morbidly Obese
HEENT: Normocephalic, Atraumatic and Moist Mucous Membranes
Respiratory: Clear to Auscultation
Cardiac: Regular Rhythm and S1/S2; Negative Murmur, Rub or Gallop
GI: Soft, Nontender, Nondistended and Normal Bowel Sounds; Negative Organomegaly
Rectal: Deferred by Provider
Musculoskeletal: No Clubbing, No Cyanosis and No Edema
Skin: Other (diffuse body tattoo noted); Negative Rash
Neuro: Awake, Alert, Oriented, AO x 3, Nonfocal/Grossly Intact and Other (dec sensation left side. Gait intact. ); Negative Tremors, Sedated, Slurred Speech or Facial Droop
Psych: Calm
Data Reviewed
-
Total Time Spent with Patient (in minutes): 60
[2025-01-13] MEDS: ESKALITH ER (EXTENDED RELEASE) 450 MG PO ×2 (11:52→21:39)
[2025-01-13] MEDS: LAMICTAL 200 MG PO (11:52)
[2025-01-13] MEDS: NICODERM TRANSDERMAL 14 MG TRANSDERM (11:53)
--- NOTE | 2025-01-13 12:12 | CON.NEURO ---
Neuro Assessment/Plan
Assessment
stroke, Due to L vertebral artery occlusion
Brain MRI imgs rev'd with patient, mainly left cerebellum with some scattered emboli in the right cerebellum and bilateral occipital cortex
Report reviewed, L vertebral no flow. and I believe the DWI+ occipital lesions are real given presence of visual symptoms on history.
carotid ultrasound was normal
Plan
no intervention on left vertebral.
As per NICOLE, ASA 81, Lipitor 80, and 90 days of Plavix
transfuse as per hospitalist
Consultation
Order
Date of Consultation: 01/13/25
Requesting Provider: Junito Roy
Reason for Consult: Stroke
Subjective/Objective
Subjective Data
Date of Service: January 13, 2025
from h&p
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
checking blood sugar and finding that it was elevated in the setting of episode of dizziness and continuous vomiting.
Patient reported she had a sudden episode of dizziness starting at around 8 PM yesterday. She reports spinning sensation afterwards. Tyrone reported left sided numbness and tingling throughout whole body. This was associated with vomiting episode.
She went home and she continued to vomit overnight. This morning she checked her blood sugar and it was elevated over 300. She said to come to the emergency department for evaluation. She did not have any further episodes of the dizziness. She
reports that the dizziness was associated with vertigo when it occurred yesterday at 8 PM. She is able to ambulate without difficulty. She denies any focal weakness or numbness. She denies any fevers or chills.
This morning, She reports visual blotches prior to the dizziness; the visual symptoms and dizziness are resolved; left sided numbness in her forearm and hand and left lower torso and leg and persist.
She is also anemic and needing a transfusion
Objective Data
Vital Signs
Temp Pulse Resp BP Pulse Ox
36.8 C 80 18 128/54 97
01/13/25 07:00 01/13/25 07:00 01/13/25 07:00 01/13/25 07:00 01/13/25 07:00
Lab Results
01/13/25 06:06
01/13/25 06:06
Sodium 136 mmol/L (135-145) 01/13/25 06:06
Potassium 3.9 mmol/L (3.5-5.1) 01/13/25 06:06
BUN 7 mg/dl (7-17) 01/13/25 06:06
Glucose 204 mg/dl (70-99) H 01/13/25 06:06
Calcium 8.8 mg/dl (8.4-10.2) 01/13/25 06:06
LDL Cholesterol, Calc 60 mg/dl 01/13/25 06:06
Vitamin B12 508 pg/ml (239-931) 01/13/25 06:06
Patient Allergies
No Known Allergies Allergy (Verified 01/12/25 18:29)
Physical Exam
-
AAOx3, speech clear, language intact
VFF, EOMI, face symmetric
full strength b/l UE/LE
decreased Temp/vibration left side
L hand ataxia
Medications
-
Active Medications
Generic Name Dose Route Start Last Admin
Trade Name Freq PRN Reason Stop Dose Admin
Acetaminophen 650 mg 01/12/25 22:57
Acetaminophen 650 Mg Rectal Suppository RECTAL 02/09/25 22:56
Q4HPRN PRN
TANG, mild pain, or temp >100.4F
Acetaminophen 650 mg 01/12/25 22:57 01/13/25 03:25
Acetaminophen 325 Mg Tablet PO 02/09/25 22:56 650 mg
Q4HPRN PRN Administration
TANG, mild pain, or temp >100.4F
Aspirin 81 mg 01/13/25 08:00 01/13/25 10:15
Aspirin 81 Mg Chewable Tablet PO 02/10/25 07:59 81 mg
DAILY LETITIA Administration
Atorvastatin Calcium 80 mg 01/13/25 18:00
Atorvastatin (Lipitor) 80 Mg Tablet PO 02/10/25 17:59
QPM LETITIA
Clonidine HCl 0.1 mg 01/13/25 22:00
Clonidine 0.1 Mg Tablet PO 02/10/25 21:59
HS LETITIA
Clopidogrel Bisulfate 75 mg 01/13/25 08:00 01/13/25 10:15
Clopidogrel 75 Mg Tablet PO 02/10/25 07:59 75 mg
DAILY LETITIA Administration
Dextrose 12.5 grams 01/12/25 23:00
Dextrose 50% (0.5 Grams/Ml) 50 Ml Syringe IV 02/09/25 22:59
Q13FHWR PRN
hypoglycemia
Protocol
Glipizide 2.5 mg 01/13/25 17:00
Glipizide 5 Mg Regular Release Tablet PO 02/10/25 16:59
BID@0800,1700 LETITIA
Glucagon 1 mg 01/12/25 23:00
Glucagon 1 Mg Vial IM 02/09/25 22:59
PRN PRN
hypoglycemia - no IV access
Protocol
Ferric Sodium Gluconate 110 mls @ 110 mls/hr 01/14/25 14:00
Complex 125 mg/ Sodium IV 01/18/25 14:59
Chloride DAILY@1400 LETITIA
Insulin Aspart 0 units 01/13/25 07:30 01/13/25 10:15
Insulin Aspart Moderate Resistance 300 Units/3 Ml Pen.Injctr SC 02/10/25 07:29 5 units
AC LETITIA Administration
Protocol
Labetalol HCl 10 mg 01/12/25 22:57
Labetalol Hcl 5 Mg/1 Ml (20 Mg/4 Ml) Injection IV 02/09/25 22:56
Q6HPRN PRN
for SBP > 180
Lamotrigine 200 mg 01/13/25 08:00 01/13/25 11:52
Lamotrigine 100 Mg Tablet PO 02/10/25 07:59 200 mg
DAILY LETITIA Administration
[place] Carbonate 450 mg 01/13/25 08:00 01/13/25 11:52
[place] Carbonate 450 Mg Extended Release Tablet PO 02/10/25 07:59 450 mg
BID LETITIA Administration
Metformin HCl 1,000 mg 01/13/25 17:00
Metformin 500 Mg Regular Release Tablet PO 02/10/25 16:59
BID@0800,1700 LETITIA
Methadone HCl 100 mg 01/13/25 08:00 01/13/25 10:18
Methadone Oral Liquid (100 Mg/10 Ml) Cup PO 01/27/25 07:59 100 mg
DAILY LETITIA Administration
Metoclopramide HCl 10 mg 01/12/25 22:57
Metoclopramide 10 Mg/2 Ml Vial IV 02/09/25 22:56
Q6HPRN PRN
nausea/vomiting
Nicotine 14 mg 01/13/25 10:20 01/13/25 11:53
Nicotine 14 Mg Patch TRANSDERM 02/10/25 10:19 14 mg
DAILY LETITIA Administration
Quetiapine Fumarate 200 mg 01/13/25 22:00
Quetiapine 100 Mg Tablet PO 02/10/25 21:59
HS LETITIA
Sodium Chloride 0 flush 01/12/25 22:00
Sodium Chloride 0.9% (Flush) Syringe IV 02/09/25 21:59
PER PROTOCOL LETITIA
Home Medications
�Medication �Instructions �Recorded
methadone 10 mg/mL oral 100 mg PO DAILY 10/25/19
concentrate (Methadose)
clonidine HCl 0.1 mg tablet 0.1 mg PO HS 01/13/25
lamotrigine 200 mg tablet 200 mg PO DAILY 01/13/25
(Lamictal)
lithium carbonate 450 mg 450 mg PO BID 01/13/25
tablet,extended release
metformin 500 mg tablet 500 mg PO DAILY 01/13/25
quetiapine 200 mg tablet (Seroquel) 200 mg PO HS 01/13/25
[2025-01-13] MEDS: NOVOLOG FLEXPEN-MODERATE RESISTANCE SC (12:58)
--- NOTE | 2025-01-13 14:21 | PTOTSP ---
Speech Therapy Evaluation:
Pt presents with oropharyngeal swallow that is WFL. No s/sx of aspiration or signs concerning for pharyngeal dysphagia. WBC WNL, pt afebrile, on room air, and passed 3oz swallow screen.
Given L CVA, language skills assessed with the Quick Aphasia Battery (QAB) form 1. Scores were as follows:
Word Comprehension: 10.00
Sentence Comprehension: 10.00
Word Findin.00
Grammatical Construction: 10.00
Speech Motor Programmin.00
Repetition: 10.00
Reading 10.00
QAB Overall: 10.00 - no aphasia
Impression: Pt's oropharyngeal swallow, speech, and language skills WFL. No further SLEEPING BAG FILLER services indicated
Recommend:
1. Continue current diet of regular solids and thin liquids
2. Medications as tolerated
3. General aspiration precautions
4. SLEEPING BAG FILLER to s/o - please reconsult if indicated
[2025-01-13 16:52] LABS: Glucose - Point of Care 223 mg/dl (70-99)
[2025-01-13] MEDS: GLUCOTROL 2.5 MG PO (17:33)
[2025-01-13] MEDS: GLUCOPHAGE 1000 MG PO (17:33)
[2025-01-13] MEDS: LIPITOR 80 MG PO (17:33)
[2025-01-13] MEDS: NOVOLOG FLEXPEN-MODERATE RESISTANCE 3 UNITS SC (17:34)
--- NOTE | 2025-01-13 17:55 | PTCARENOTE ---
Patient received 1 unit PRBCs. No s/s of transfusion reaction noted at this time. Plan of care ongoing.
--- NOTE | 2025-01-13 18:12 | CM ---
Met with patient to obtain information for assessment. Patient stated that she lives with a roommate in a condo, first floor, no steps, all one level. She described herself as independent with her ADLs, personal care, dressing and bathing. 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 She has no DME. She has not had VN. She has not been to a SNF.
Patient has a prescription plan and uses [facility] in [place] for all of her medications.
Patient's PCP is, Adele Harrington.
Plan: Case management will continue to follow and assist with discharge planning. Will watch for needs.
[2025-01-13] MEDS: SEROQUEL 200 MG PO (21:39)
[2025-01-13] MEDS: CATAPRES 0.1 MG PO (21:40)
[2025-01-13 21:52] LABS: Glucose - Point of Care 200 mg/dl (70-99)
[2025-01-14] VITALS (8 sets, daily range): BP systolic 93–128; BP diastolic 49–73; PULSE 82
[2025-01-14 07:34] LABS: Hematocrit 28.9 % (37.0-47.0); Hemoglobin 8.1 g/dL (12.0-16.0)
[2025-01-14 08:06] LABS: Glucose - Point of Care 193 mg/dl (70-99)
[2025-01-14] MEDS: LOW STRENGTH ASPIRIN 81 MG PO (08:31)
[2025-01-14] MEDS: GLUCOTROL 2.5 MG PO ×2 (08:31→16:37)
[2025-01-14] MEDS: GLUCOPHAGE 1000 MG PO (08:31)
[2025-01-14] MEDS: PLAVIX 75 MG PO (08:31)
[2025-01-14] MEDS: NICODERM TRANSDERMAL 14 MG TRANSDERM (08:31)
[2025-01-14] MEDS: LAMICTAL 200 MG PO (08:37)
[2025-01-14] MEDS: METHADONE 100 MG/10 ML PO (08:38)
[2025-01-14] MEDS: NOVOLOG FLEXPEN-MODERATE RESISTANCE 1 UNITS SC ×2 (08:38→16:38)
[2025-01-14] MEDS: ESKALITH ER (EXTENDED RELEASE) 450 MG PO ×2 (08:38→21:00)
[2025-01-14] MEDS: TYLENOL 650 MG PO ×3 (10:23→21:27)
[2025-01-14] MEDS: NSS 1000 IV (10:45)
--- NOTE | 2025-01-14 10:47 | W.PN.HOSP.TC ---
Today's Communication/Plan
-
trend hgb/cr
IV iron
PT/OT
Check abd imaging -d/w with radiology.
Start gentle IVF
Assessment / Plan
Assessment / Plan
IMPRESSION:
49 y.o with history of diabetes, hyperlipidemia, bipolar d/o, former opioid dependence now on methadone presenting with dizziness starting 8-9pm yesterday, associated nausea vomiting and found to have hyperglycemia and L cerebellar cva.
PLAN:
Large Acute CVA left cerebellum. Mild petechial hemorrhage
Right cerebellum infarcts x 2
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
- out of window no TNK
- starting aspirin, plavix -plan for 90day than stop plavix.
- continue atorvastatin 80
- mri brain noted
- echo-EF 55-60%. Interartial septum is intact w/no evidence of shunting by color flow doppler.
- LDL at 60. A1c 9.2.
- pt/ot
- BP well controlled as already on clonidine as outpatient 105/51
- appreciate neurology recs
Diabetes mellitus type 2 uncontrolled
-A1c at 9.2
-Increase metformin to 1000 mg twice daily
- started patient on glipizide
-Accu-Cheks and monitor POC
-Adjust regimen as needed. POC 193
Anemia - microcytic. History of iron deficiency
- Severe iron deficiency noted. Patient states of chronic anemia.
- Denies any blood in urine or stool. Patient is due for colonoscopy. Denies any change in consistency of bm. Denies any weight loss.
- Start patient IV iron
- Hemoglobin of 8.1 s/p 1 unit of PRBC so far. No luminal bleeding noted so far. No bm. Check CT abd/pelvis
- likely outpatient colonoscopy
Nausea/vomiting/constipation
-states of BM every 2-3 days. on chronic opiates. However, with anemia NIKKO -will check abd imaging.
Opioid dependence On daily basis
- ecg QTc of 453
- continue methadone 100 mg daily
Bipolar disorder
- continue lithium hs, lamictal am, quetiapine and clonidine hs
daily tobacco abuse
-Smokes 1 pack a day
-Nicotine patch offered
-Counseled on complete tobacco cessation. Patient verbalized understanding.
Morbid obesity due to excess calories
affects all aspect of medical care
DVT PPX - SCDs
Code status - Full Code
Anticipated Discharge: Within 24 hours
Subjective/Interval History
-
Date of Service: January 14, 2025
states of feeling dehydrated
no bm x 2-3 days
Objective Data
-
Labs:
Laboratory Results
01/14/25
06:38
Hgb 8.1 L D
Hct 28.9 L
Vital Signs:
Vital Signs
Temp Pulse Resp BP Pulse Ox
98.5 F 59 16 105/51 96
01/14/25 07:55 01/14/25 07:55 01/14/25 07:55 01/14/25 07:55 01/14/25 10:12
I&O
01/13/25 01/14/25 01/15/25
06:59 06:59 06:59
Intake Total 1700 / 1700 770 / 770
Balance 1700 / 1700 770 / 770
Physical Exam
-
General: Well Developed, No Apparent Distress and Morbidly Obese
HEENT: Normocephalic, Atraumatic and Moist Mucous Membranes
Respiratory: Clear to Auscultation
Cardiac: Regular Rhythm and S1/S2; Negative Murmur, Rub or Gallop
GI: Soft, Nontender, Nondistended and Normal Bowel Sounds; Negative Organomegaly
Rectal: Deferred by Provider
Musculoskeletal: No Clubbing, No Cyanosis and No Edema
Skin: Other (diffuse body tattoo noted); Negative Rash
Neuro: Awake, Alert, Oriented, AO x 3, Nonfocal/Grossly Intact and Other (dec sensation left side. Gait intact. ); Negative Tremors, Sedated, Slurred Speech or Facial Droop
Psych: Calm
Data Reviewed
-
Total Time Spent with Patient (in minutes): 57
[2025-01-14] MEDS: OMNIPAQUE 50 ML PO (10:56)
[2025-01-14 13:13] LABS: Glucose - Point of Care 220 mg/dl (70-99)
[2025-01-14] MEDS: NOVOLOG FLEXPEN-MODERATE RESISTANCE 3 UNITS SC (13:20)
--- NOTE | 2025-01-14 14:27 | CM ---
Patient seen bedside.
Patient denies any home care needs.
PT/OT recommending outpatient therapy, will need script.
IMM completed.
Plan: home with outpatient therapy when stable.
[2025-01-14] MEDS: FERRLECIT 110 MG IV (15:20)
[2025-01-14 15:54] LABS: Glucose - Point of Care 180 mg/dl (70-99)
--- NOTE | 2025-01-14 16:09 | CON.CAR ---
Addendum entered and electronically signed by Tony Modi MD 01/14/25 17:37:
I saw and examined the patient.
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
Comment: 49-year-old female with prior heroin usage (sobriety for 10 years, on methadone), hep C, bipolar depression, GERD, and diabetes who presented to the emergency department 01/12/2025 with a chief complaint of elevated blood glucose. She
endorsed associated dizziness, vomiting abd parasthesias along her left side. She had imaging showing subacute infarct in the left cerebellum. MRI showed large acute infarct in the left cerebellum, mild petechial hemorrhage, 2 tiny acute infarcts
in the right cerebellum, and 2-3 tiny cortical foci of increased signal intensity on diffusion in the left parietal�occipital lobe. She had an abdomen pelvis CT which showed i regions of decreased density suggestive of thrombus in descending aorta
also felt to be embolic. We are asked to evaluate her for possible FABRICIO and Linq. She had a normal.TTE, no bubble study performed. She does endorse that her grandmother had a clotting disorder but not her mother. No new medications, she does not
use control, no recent travel.On exam she is alert and oriented x 3, regular rate and rhythm, no murmurs or gallops were appreciated lungs clear to auscultation bilaterally. She does not endorse any prior history of difficulty swallowing. I
explained with the findings of CVA and possible embolic findings in the aorta, further evaluation is warranted to look for source of emboli. Will check lower extremity Doppler ultrasounds to rule out DVT. FABRICIO will be arranged for Friday. If
without evidence of PFO, the Linq would be placed. If PFO were placed, would recommend a 2-week monitor and evaluation with hematology. However, given the significant anemia seen, her lack of endorsement of heavy menstrual bleeding, I would
recommend a hematology evaluation for all of the above issues. Agree with high-dose statin. Will follow peripherally on the weekend as requested otherwise we will see on Friday for procedure. N.p.o. after midnight on Friday order placed.
Original Note:
Consultation
Consultation Request
Date/Time Consultation Requested: 01/14/2025 16:00
Date/Time Consultation Performed: 01/14/2025 16:10
Requesting Provider: Dr. Robb
Performing Provider: DIXON Garvey for Dr. Modi
Reason for Consultation: CVA
Medical History
-
Chief Complaint: Elevated glucose with dizziness and vomiting
History of Present Illness:
Crissy Taylor is a 49-year-old female with prior heroin usage (sobriety for 10 years, on methadone), hep C, bipolar depression, GERD, and diabetes who presented to the emergency department 01/12/2025 with a chief complaint of elevated blood glucose.
She endorsed associated dizziness and vomiting. She was on Trulicity but had not taken it for several months due to drug shortage. A CT of her head was performed in the emergency department. Findings suggested subacute infarct in the left
cerebellum. MRI showed large acute infarct in the left cerebellum, mild petechial hemorrhage, 2 tiny acute infarcts in the right cerebellum, and 2-3 tiny cortical foci of increased signal intensity on diffusion in the left parietal�occipital lobe.
She had an abdomen pelvis CT which showed i regions of decreased density suggestive of thrombus. Cardiology was consulted today. Neurology is also following this patient.
Past Medical History
Past Medical History: NIDDM, Psychiatric (Bipolar depression) and Other (Hepatitis C)
Past Surgical History: Gynecological
Social History
Tobacco: Smoker
Alcohol: None
Drug: Former User (IVDA)
Family History
Family History: Other (Grandmother with unprovoked DVTs)
Allergies / Home Medications
Allergy/AdvReac Type Severity Reaction Status Date / Time
No Known Allergies Allergy Verified 01/12/25 18:29
�Medication �Instructions �Recorded �Confirmed �Type
methadone 10 mg/mL oral 100 mg PO DAILY 10/25/19 01/13/25 History
concentrate (Methadose)
clonidine HCl 0.1 mg tablet 0.1 mg PO HS 01/13/25 01/13/25 History
lamotrigine 200 mg tablet 200 mg PO DAILY 01/13/25 01/13/25 History
(Lamictal)
lithium carbonate 450 mg 450 mg PO BID 01/13/25 01/13/25 History
tablet,extended release
metformin 500 mg tablet 500 mg PO DAILY 01/13/25 01/13/25 History
quetiapine 200 mg tablet (Seroquel) 200 mg PO HS 01/13/25 01/13/25 History
omeprazole 40 mg capsule,delayed 40 mg PO DAILY 01/14/25 01/14/25 History
release
Physical Exam
Vital Signs
Temp Pulse Resp BP Pulse Ox
98.6 F 68 18 93/49 93
01/14/25 11:55 01/14/25 11:55 01/14/25 11:55 01/14/25 11:55 01/14/25 11:55
Lab Results
01/14/25 06:38
01/13/25 06:06
Impression / Plan
-
I/P: 49F with prior heroin usage (sobriety for 10 years, on methadone), hep C, bipolar depression, GERD, and diabetes who presented to the emergency department 01/12/2025 with a chief complaint of elevated blood glucose, dizziness, and vomiting ->
Large CVA
CVA, large, acute, left cerebellum
- MRI with mild petechial hemorrhage and right cerebellum infarcts x 2
- On DAPT (clopidogrel and aspirin) for 90 days then lifelong aspirin
- Started on atorvastatin 80 mg
- Echocardiogram without acute findings
- B/L LE US ordered
PAD
- Possible partial left vertebral artery occlusion
- Abdomen pelvis CT suggestive of thrombus in aortic lumen, appearance suggesting a more proximal origin
Anemia, macrocytic
- Received 1 unit of PRBCs and started on intravenous iron by primary service
Hypertension, chronic
- BP stable on clonidine as an outpatient
NIDDM, uncontrolled, HgbA1c 9.2%, per primary service
Opioid dependence, on methadone
- Heroin sobriety for 10 years
Daily tobacco abuse, cessation recommended
Obesity, BMI 38, she would benefit from weight loss
Data Reviewed
-
EKG: Report Reviewed by me (Sinus rhythm, rate 82)
CT Scan: Report Reviewed by me (Abd/Pel: Findings suggesting thrombus)
Labs: Labs Reviewed by me
Old Records: Reviewed
--- NOTE | 2025-01-14 16:16 | W.PN.UPDATE ---
Update Note
Progress Note Update
Patient returned from CT abdomen pelvis with IV and p.o. contrast. No colonic malignancy was noted. Discussed with radiology and patient with aortic thrombus suggesting an embolic phenomena. Discussed results with the patient. Patient continues
to remain without any bowel movements. No luminal bleeding has been noted so far. Also discussed with neurology stated with embolic phenomenon will need to discontinue aspirin Plavix and start anticoagulation. TTE was negative for interatrial
septum and no thrombus was noted on TTE. No atrial fibrillation or arrhythmias were noted on telemetry so far except for mild sinus bradycardia at times. Patient without any prior history of arrhythmias atrial fibrillation. Continue to monitor
hemoglobin. Cardiology to evaluate for FABRICIO. Will probably need outpatient hematology follow-up for hypercoagulable workup.
[2025-01-14] MEDS: LIPITOR 80 MG PO (16:42)
[2025-01-14 17:22] LABS: APTT 24.6 Sec (23.4-35.0)
[2025-01-14] MEDS: HEPARIN 25000 UNITS/250 ML IV (18:13)
[2025-01-14] MEDS: CATAPRES 0.1 MG PO (21:09)
[2025-01-14] MEDS: SEROQUEL 200 MG PO (21:09)
[2025-01-14 21:25] LABS: Glucose - Point of Care 290 mg/dl (70-99)
[2025-01-15] VITALS (7 sets, daily range): BP systolic 97–111; BP diastolic 42–58; PULSE 66; O2SAT 96
[2025-01-15] MEDS: TYLENOL 650 MG PO ×3 (01:04→23:16)
[2025-01-15 01:15] LABS: APTT 35.1 Sec (23.4-35.0)
--- NOTE | 2025-01-15 07:46 | W.PN.HOSP.TC ---
Today's Communication/Plan
-
Hematology consult.
FABRICIO on Friday.
Assessment / Plan
Assessment / Plan
IMPRESSION:
49 y.o with history of diabetes, hyperlipidemia, bipolar d/o, former opioid dependence now on methadone presenting with dizziness starting 8-9pm yesterday, associated nausea vomiting and found to have hyperglycemia and L cerebellar cva.
Seen by neurology and started on aspirin/Plavix/statin.
Patient also noted to have iron deficiency anemia required blood transfusion.
CT abdomen pelvis with IV contrast and p.o. contrast obtained to rule out underlying malignancy.
No malignancy noted but patient noted to have aortic thrombosis suggesting embolic phenomena.
Cardiology consult for FABRICIO which will be done on Friday.
Hematology consulted
Assessment/plan:
Large Acute CVA left cerebellum. Mild petechial hemorrhage
Right cerebellum infarcts x 2
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
- out of window no TNK
- starting aspirin, plavix -plan for than stop plavix.
- continue atorvastatin 80
- mri brain noted
- echo-EF 55-60%. Interartial septum is intact w/no evidence of shunting by color flow doppler.
- LDL at 60. A1c 9.2.
- pt/ot
- BP well controlled as already on clonidine as outpatient 105/51
- appreciate neurology recs
01/15
CT abdomen and pelvis with IV contrast showed Findings suggesting thrombus within the aorta as described, suggesting embolic origin.
Aspirin Plavix discontinued for now and patient was started on heparin drip.
Cardiology consult for FABRICIO Friday.
Hematology consulted
Rule out hypercoagulable status.
Continue heparin drip.
Hematology consulted
Diabetes mellitus type 2 uncontrolled
-A1c at 9.2
-Increase metformin to 1000 mg twice daily
- started patient on glipizide
-ISS
Anemia - microcytic. History of iron deficiency
- Severe iron deficiency noted. Patient states of chronic anemia.
- Denies any blood in urine or stool. Patient is due for colonoscopy. Denies any change in consistency of bm. Denies any weight loss.
- Start patient IV iron
- Hemoglobin of 8.1 s/p 1 unit of PRBC so far. No luminal bleeding noted so far. No bm.
- likely outpatient colonoscopy
- Hematology consulted
Nausea/vomiting/constipation
-improved.
Opioid dependence On daily basis
- ecg QTc of 453
- continue methadone 100 mg daily
Bipolar disorder
- continue lithium hs, lamictal am, quetiapine and clonidine hs
daily tobacco abuse
-Smokes 1 pack a day
-Nicotine patch offered
-Counseled on complete tobacco cessation. Patient verbalized understanding.
Morbid obesity due to excess calories
affects all aspect of medical care
CODE STATUS: Full code
DVT prophylaxis: Heparin drip.
Diet: Diabetic diet
Disposition: FABRICIO on Friday.
Total time spent on today's encounter was 65 minutes which included time spent in counseling the patient/family regarding diagnosis and treatment plan as listed above, goals of care, and symptom management. Case was discussed with nursing staff,
specialists, and care coordinators/case management. All labs and imaging personally reviewed by me. Remainder the time spent in detailed review of previous records, lab data, imaging, and other medical provider documentation.
Anticipated Discharge: > 48 hours
Subjective/Interval History
-
Date of Service: January 15, 2025
Patient seen and examined at bedside, complaining of left-sided numbness but otherwise patient denies any chest pain or shortness of breath, no abdominal pain, no nausea, no vomiting, no diarrhea or constipation.
Objective Data
-
Labs:
Laboratory Results
01/15/25 01/15/25 01/15/25
00:53 06:00 07:45
WBC Pending
Hgb Pending
Hct Pending
Plt Count Pending
APTT 35.1 H Pending
Sodium Pending
Potassium Pending
Chloride Pending
Carbon Dioxide Pending
BUN Pending
Creatinine Pending
Glucose Pending
Calcium Pending
Vital Signs:
Vital Signs
Temp Pulse Resp BP Pulse Ox
98 F 57 16 97/42 95
01/15/25 03:30 01/15/25 03:30 01/15/25 03:30 01/15/25 03:30 01/15/25 03:30
I&O
01/14/25 01/15/25 01/16/25
06:59 06:59 06:59
Intake Total 770 / 770 2720 / 2720
Balance 770 / 770 2720 / 2720
Physical Exam
-
General: Well Developed, Well Nourished, No Apparent Distress and Comfortable
HEENT: Normocephalic, Atraumatic, Moist Mucous Membranes, No Ptosis, PERRLA and Nose Appears Normal
Respiratory: Clear to Auscultation and Non Labored Respirations
Cardiac: Regular Rhythm and S1/S2
Breast: Deferred by me
GI: Soft, Nontender, Nondistended and Normal Bowel Sounds
Genito-urinary: No Costovertebral Tender
Musculoskeletal: No Clubbing, No Cyanosis and No Edema
Skin: Warm
Neuro: Awake, Alert, Oriented, AO x 3 and No Motor Deficits; Negative No Sensory Deficits (Left-sided numbness )
Psych: Calm
Data Reviewed
-
Diagnostic Radiology: Image personally visualized and interpreted and Report Reviewed by me
CT Scan: Image personally visualized and interpreted and Report Reviewed by me
Ultrasound: Image personally visualized and interpreted and Report Reviewed by me
MRI: Image personally visualized and interpreted and Report Reviewed by me
Medical Tests (Nuc Med, Echo etc): Image personally visualized and interpreted and Report Reviewed by me
Labs: Labs Reviewed by me
Old Records: Reviewed
[2025-01-15 08:00] LABS: Glucose - Point of Care 177 mg/dl (70-99)
[2025-01-15] MEDS: NOVOLOG FLEXPEN-MODERATE RESISTANCE 1 UNITS SC (08:19)
[2025-01-15] MEDS: METHADONE 100 MG/10 ML PO (08:19)
[2025-01-15] MEDS: ESKALITH ER (EXTENDED RELEASE) 450 MG PO ×2 (08:20→21:00)
[2025-01-15] MEDS: LAMICTAL 200 MG PO (08:20)
[2025-01-15] MEDS: GLUCOTROL 2.5 MG PO ×2 (08:20→17:45)
[2025-01-15] MEDS: NICODERM TRANSDERMAL 14 MG TRANSDERM (08:21)
[2025-01-15 09:03] LABS: % Basophils 0.5 % (0-2); % Eosinophils 3.1 % (0-6); % Immature Granulocytes 0.4 % (0-0.5); % Lymphocytes 27.3 % (20.5-51.1); % Monocytes 5.7 % (1.7-9.3); Absolute Eosinophils 0.2 10^3/uL (0-0.7); Absolute Lymphocytes 2.1 10^3/uL (1.2-3.4); Absolute Monocytes 0.4 10^3/uL (0.1-0.6); Absolute Neutrophils 4.7 10^3/uL (1.4-6.5); Hematocrit 29.7 % (37.0-47.0); Hemoglobin 8.1 g/dL (12.0-16.0); Mean Corp Hgb Conc. 27.3 g/dL (33.0-37.0); Mean Corpuscular Hgb 17.9 pg (27.0-31.0); Mean Corpuscular Volume 65.7 fL (81.0-99.0); Mean Platelet Volume 9.7 fL (7.4-10.4); Nucleated Red Blood Cells % 0 %; Platelet Count 275 10^3/uL (130-400); Red Blood Cell Count 4.52 10^6/uL (4.20-5.40); Red Cell Dist. Width 24.9 % (11.5-14.5); White Blood Cell Count 7.5 10^3/uL (4.8-10.8)
[2025-01-15 09:07] LABS: APTT 45.7 Sec (23.4-35.0)
[2025-01-15 09:27] LABS: Blood Urea Nitrogen 6 mg/dl (7-17); Calcium 9.9 mg/dl (8.4-10.2); Carbon Dioxide 26 mmol/L (22-30); Chloride 105 mmol/L (98-107); Estimated Creatinine Clearance 119 ml/min; Glucose 186 mg/dl (70-99); Potassium 3.8 mmol/L (3.5-5.1); Sodium 136 mmol/L (135-145); eGFR > 60.00
[2025-01-15 12:16] LABS: Glucose - Point of Care 262 mg/dl (70-99)
--- NOTE | 2025-01-15 12:29 | CON.ONC ---
Consultation
-
Date Consultation Requested: 01/15/25
Date Consultation Performed: 01/15/25
Requesting Provider: Dr Wylie
Performing Provider: Dr Marcela Porras
Reason for Consultation: microcytic anemia, possible CVA
Impression
Impression
- embolic CVA with vertebral artery occlusion
- thrombus involving abdominal aorta, embolic
- iron deficiency anemia
- hx of GERD
Plan
Plan
# Embolic event
- imaging with large region of increased signal intensity on diffusion with diminished signal intensity on the ADC map consistent with acute infarct involving the left cerebellum measuring up to 4.5 cm in diameter, 2 tiny sub-5 mm acute infarcts are
present in the right cerebellum, thrombus involving abdominal aorta. findings concerning for embolic process.
- no hx of arrhythmia, autoimmune conditions, recent infections. non-toxic appears. no obvious clot or vegetation on TTE. cardiology planning for FABRICIO with possible linq placement friday.
- neurology initially started on ASA, plavix however switched to heparin after aortic thrombus seen. agree with AC. pt should be transitioned to DOAC on discharge (family says preferred Xarelto based on coverage).
- started on statin.
- hereditary thrombophilia unlikely with only arterial involvement, no strong family or personal hx of venous clots. check LA, B2G antibodies, AcL Ab. can consider MPN testing outpt however CBC without findings suggestive for this.
# Iron deficiency anemia
- serial CBCs over past 1.5 years show a gradual decline in hgb from 11.3 g/dl in 07/2023 to 7.6 g/dl on admission, drop to 6.3 g/dl s/p pRBCs. hgb up to 8.1 g/dl.
- w/u c/s with severe iron deficiency. agree with IV iron repletion.
- denies heavy menses, melena, BRBPR. ordered stool hemoccult. will need GI evaluation outpt.
- benefits of AC outweigh her anemia at this time however will need close CBC monitoring and management of NIKKO if ongoing issues michelle on AC.
- will arrange hematology follow up on discharge.
- CBC daily. transfuse for hgb < 7.0 g/dl or < 8.0 g/dl if active bleed confirmed.
will continue to follow.
Patient History
History of Present Illness
Crissy is a 49-year-old female with past medical history significant for prior IV heroin use (reportedly sober x 10 years), hep C, bipolar/depression, GERD, diabetes who presented with dizziness, vomiting and elevated glucose levels in the setting
of medication non-compliance (previously on trulicity but has not taken this for several months due to pharmacy shortages/insurance). Patient reported sudden episode of dizziness starting night prior to arrival, left sided numbness and tingling
throughout whole body. This was associated with vomiting episode. She went home and she continued to vomit overnight. Labs on admission showed glucose 351, no acidosis, hgb 7.6 gdl with MCV 61.3 fl which dropped to 6.3 g/dl D2 of admission after
IV hydration s/p 1 unit pRBCs now stable at 8..1 g/dl. Anemia work-up c/w NIKKO with ferritin 9.2 g/dl, IS 6%. CT head due to dizziness noted possible subacute left cerebral infarct. Brain MRI confirmed ' Large acute infarct in the left cerebellum.
Mild petechial hemorrhage. 2 tiny acute infarcts in the right cerebellum. 2 or 3 tiny cortical foci of increased signal intensity on diffusion are noted in the left parietal-occipital lobe. It is difficult to determine if artifactual, or associated
with real tiny acute cortical infarct. Absent flow in the left vertebral artery.' Neurology consulted. pt started on ASA, plavix, statin. CT A/P showed 'Within the posterior and left lateral lumen of the abdominal aorta, just inferior to the origin
of the left renal artery, there is focal rounded area of decreased enhancement, especially left laterally. Additionally, more inferiorly within the distal aorta, located approximately 3.5 cm superior to the aortic bifurcation, there is a rounded
area of decreased density in the posterior lumen of the aorta, with approximately 60% diameter reduction. Slightly more inferiorly within the distal aorta, there is decreased density along the right lateral aspect of the aortic lumen.' LE US
negative for DVT. Cardiology consulted, planning FABRICIO on 01/17 to assess for PFO +/- Linq. TTE without obvious shunting. Hematology consulted both for hypercoagulable work-up and NIKKO evaluation.
pt denies prior hx of venous or arterial clots. She had two uneventual pregnancies. She is active smoker, not taking estrogen containing supplements. family hx of 'lots of clots' in her grandmother who in s. Denies recent infections, AI or
chronic inflammatory conditions. denies heavy menses, melena, BRBPR. She has seen GI in past for heartburn controlled on daily PPI. Serial labs reviewed on her phone. starting back in july 2023 CBCs show steady drop in hgb from 11.3 to 10.2 in
december 2023 -> 9.02 march 2024 -> 8.6 in may 2024. She says she saw a environment friendly landscape designer here in our system however not in our emr. she states colonoscopy was recommended but she did not have time.
Past-Medical/Surgical History
type 2 diabetes
GERD
bipolar depression
hep C
prior hx of IVDU on methadone
tobacco dependence
Patient Medication
�Medication �Instructions �Recorded �Confirmed �Last Taken �Type
methadone 10 mg/mL oral 100 mg PO DAILY 10/25/19 01/13/25 01/11/25 History
concentrate (Methadose) 100 mg
clonidine HCl 0.1 mg tablet 0.1 mg PO HS 01/13/25 01/13/25 01/12/25 History
lamotrigine 200 mg tablet 200 mg PO DAILY 01/13/25 01/13/25 01/12/25 History
(Lamictal)
lithium carbonate 450 mg 450 mg PO BID 01/13/25 01/13/25 01/11/25 History
tablet,extended release 450 mg
metformin 500 mg tablet 500 mg PO DAILY 01/13/25 01/13/25 01/12/25 History
500 mg
quetiapine 200 mg tablet (Seroquel) 200 mg PO HS 01/13/25 01/13/25 01/12/25 History
omeprazole 40 mg capsule,delayed 40 mg PO DAILY 01/14/25 01/14/25 Unknown History
release
Active Medications
Generic Name Dose Route Start Last Admin
Trade Name Freq PRN Reason Stop Dose Admin
Acetaminophen 650 mg 01/12/25 22:57
Acetaminophen 650 Mg Rectal Suppository RECTAL 02/09/25 22:56
Q4HPRN PRN
TANG, mild pain, or temp >100.4F
Acetaminophen 650 mg 01/12/25 22:57 01/15/25 01:04
Acetaminophen 325 Mg Tablet PO 02/09/25 22:56 650 mg
Q4HPRN PRN Administration
TANG, mild pain, or temp >100.4F
Atorvastatin Calcium 80 mg 01/13/25 18:00 01/14/25 16:42
Atorvastatin (Lipitor) 80 Mg Tablet PO 02/10/25 17:59 80 mg
QPM LETITIA Administration
Clonidine HCl 0.1 mg 01/13/25 22:00 01/14/25 21:09
Clonidine 0.1 Mg Tablet PO 02/10/25 21:59 0.1 mg
HS LETITIA Administration
Dextrose 12.5 grams 01/12/25 23:00
Dextrose 50% (0.5 Grams/Ml) 50 Ml Syringe IV 02/09/25 22:59
[id number] PRN
hypoglycemia
Protocol
Glipizide 2.5 mg 01/13/25 17:00 01/15/25 08:20
Glipizide 5 Mg Regular Release Tablet PO 02/10/25 16:59 2.5 mg
BID@0800,1700 LETITIA Administration
Glucagon 1 mg 01/12/25 23:00
Glucagon 1 Mg Vial IM 02/09/25 22:59
PRN PRN
hypoglycemia - no IV access
Protocol
Ferric Sodium Gluconate 110 mls @ 110 mls/hr 01/14/25 14:00 01/14/25 15:20
Complex 125 mg/ Sodium IV 01/18/25 14:59 110 mls
Chloride DAILY@1400 LETITIA Administration
Heparin Sodium 25,000 units in 250 mls @ 0 mls/hr 01/14/25 16:30 01/14/25 18:13
Heparin 70221 Units/250 Ml IV 250 mls
PER PROTOCOL LETITIA Administration
Protocol
Per Protocol
Insulin Aspart 0 units 01/13/25 07:30 01/15/25 08:19
Insulin Aspart Moderate Resistance 300 Units/3 Ml Pen.Injctr SC 02/10/25 07:29 1 units
AC LETITIA Administration
Protocol
Labetalol HCl 10 mg 01/12/25 22:57
Labetalol Hcl 5 Mg/1 Ml (20 Mg/4 Ml) Injection IV 02/09/25 22:56
Q6HPRN PRN
for SBP > 180
Lamotrigine 200 mg 01/13/25 08:00 01/15/25 08:20
Lamotrigine 100 Mg Tablet PO 02/10/25 07:59 200 mg
DAILY LETITIA Administration
Decorah Carbonate 450 mg 01/13/25 08:00 01/15/25 08:20
Decorah Carbonate 450 Mg Extended Release Tablet PO 02/10/25 07:59 450 mg
BID LETITIA Administration
Metformin HCl 1,000 mg 01/13/25 17:00 01/14/25 08:31
Metformin 500 Mg Regular Release Tablet PO 02/10/25 16:59 1,000 mg
BID@0800,1700 LETITIA Administration
Methadone HCl 100 mg 01/13/25 08:00 01/15/25 08:19
Methadone Oral Liquid (100 Mg/10 Ml) Cup PO 01/27/25 07:59 100 mg
DAILY LETITIA Administration
Metoclopramide HCl 10 mg 01/12/25 22:57
Metoclopramide 10 Mg/2 Ml Vial IV 02/09/25 22:56
Q6HPRN PRN
nausea/vomiting
Nicotine 14 mg 01/13/25 10:20 01/15/25 08:21
Nicotine 14 Mg Patch TRANSDERM 02/10/25 10:19 14 mg
DAILY LETITIA Administration
Quetiapine Fumarate 200 mg 01/13/25 22:00 01/14/25 21:09
Quetiapine 100 Mg Tablet PO 02/10/25 21:59 200 mg
HS LETITIA Administration
Sodium Chloride 0 flush 01/12/25 22:00
Sodium Chloride 0.9% (Flush) Syringe IV 02/09/25 21:59
PER PROTOCOL LETITIA
Review of Systems
-
History Source: Patient
Constitutional: Denies Fever or Weight Loss
Respiratory: Denies Cough or Trouble Breathing
Cardiac: Denies Chest Pain
GI: Reports Nausea, Vomiting, Constipated and GERD; Denies Abdominal Pain, Bloody Stools, Black Stools or Hemetemesis
: Denies Bleeding
Neuro: Reports Dizzy, Headache and Lightheadedness; Denies Weakness
Physical Exam
-
General: Well Developed, Well Nourished, No Apparent Distress and Obese
HEENT: Negative Jaundice
Cardiology: Normal Sinus Rhythm
Pulmonary: Clear
GI: Soft; Negative Distended
Musculoskeletal: No Clubbing and No Edema
Neurology: Non Focal and No Lateralizing Symptoms
Labs
Lab Results
WBC 7.5 10^3/uL (4.8-10.8) 01/15/25 08:35
RBC 4.52 10^6/uL (4.20-5.40) 01/15/25 08:35
Hgb 8.1 g/dL (12.0-16.0) L 01/15/25 08:35
Hct 29.7 % (37.0-47.0) L 01/15/25 08:35
MCV 65.7 fL (81.0-99.0) L 01/15/25 08:35
MCH 17.9 pg (27.0-31.0) L 01/15/25 08:35
MCHC 27.3 g/dL (33.0-37.0) L 01/15/25 08:35
RDW 24.9 % (11.5-14.5) H 01/15/25 08:35
Plt Count 275 10^3/uL (130-400) 01/15/25 08:35
MPV 9.7 fL (7.4-10.4) 01/15/25 08:35
Abs Immat Gran (auto) 0.0 10^3/uL (0-0.05) 01/15/25 08:35
Absolute Neuts (auto) 4.7 10^3/uL (1.4-6.5) 01/15/25 08:35
Absolute Lymphs (auto) 2.1 10^3/uL (1.2-3.4) 01/15/25 08:35
Absolute Monos (auto) 0.4 10^3/uL (0.1-0.6) 01/15/25 08:35
Absolute Eos (auto) 0.2 10^3/uL (0-0.7) 01/15/25 08:35
Absolute Basos (auto) 0.0 10^3/uL (0-0.2) 01/15/25 08:35
Immature Gran % 0.4 % (0-0.5) 01/15/25 08:35
Neutrophils % 63.0 % (42.2-75.2) 01/15/25 08:35
Lymphocytes % 27.3 % (20.5-51.1) 01/15/25 08:35
Monocytes % 5.7 % (1.7-9.3) 01/15/25 08:35
Eosinophils % 3.1 % (0-6) 01/15/25 08:35
Basophils % 0.5 % (0-2) 01/15/25 08:35
Creatinine 0.7 mg/dL (0.6-1.0) 01/15/25 08:35
Vital Signs
Vital Signs
Temp Pulse Resp BP Pulse Ox
98.9 F 71 18 104/58 96
01/15/25 11:27 01/15/25 11:27 01/15/25 11:27 01/15/25 11:27 01/15/25 11:27
[2025-01-15] MEDS: NOVOLOG FLEXPEN-MODERATE RESISTANCE 3 UNITS SC ×2 (13:12→17:44)
[2025-01-15] MEDS: FERRLECIT 110 MG IV (14:06)
[2025-01-15 15:20] LABS: APTT 63.5 Sec (23.4-35.0)
--- NOTE | 2025-01-15 15:22 | W.PN.NEURO.1 ---
Today's Communication / Plan
-
agree FABRICIO, heparin gtt
Neuro Assessment/Plan
Assessment
stroke, Due to L vertebral artery occlusion
Brain MRI imgs rev'd with patient, mainly left cerebellum with some scattered emboli in the right cerebellum and bilateral occipital cortex
Report reviewed, L vertebral no flow. and I believe the DWI+ occipital lesions are real given presence of visual symptoms on history.
carotid ultrasound was normal
with aortic thrombus, I believe she is high risk for embolic stroke; agree stopping ASA/Plavix and starting full anticoagulation with heparin gtt
still think her presenting stroke was vascular etiology - would be unusual for the aortic thrombus to throw a single clot that lodged into the left vertebral and then tiny emboli into the FOOD CONS[employer] territory without hitting any other vascular territory.
Plan
no intervention on left vertebral.
agree anticoagulation benefits outweigh risks of hemorrhagic conversion
agree FABRICIO
Lipitor 80
transfuse as per hospitalist
Subjective/Objective
Subjective Data
Date of Service: January 15, 2025
yesterday afternoon had CT abd/pelvis for GI symptoms, found to have aortic thrombus, I spoke with Dr Robb re: anticoagulation heparin gtt
today patient reports continues to have some left sided numbness. dizziness is resolved.
Objective Data
Vital Signs
Temp Pulse Resp BP Pulse Ox
37.2 C 71 18 104/58 96
01/15/25 11:27 01/15/25 11:27 01/15/25 11:27 01/15/25 11:27 01/15/25 11:27
Lab Results
01/15/25 08:35
01/15/25 08:35
APTT 45.7 Sec (23.4-35.0) H 01/15/25 08:35
Sodium 136 mmol/L (135-145) 01/15/25 08:35
Potassium 3.8 mmol/L (3.5-5.1) 01/15/25 08:35
BUN 6 mg/dl (7-17) L 01/15/25 08:35
Glucose 186 mg/dl (70-99) H 01/15/25 08:35
Calcium 9.9 mg/dl (8.4-10.2) 01/15/25 08:35
LDL Cholesterol, Calc 60 mg/dl 01/13/25 06:06
Vitamin B12 508 pg/ml (352-931) 01/13/25 06:06
Patient Allergies
No Known Allergies Allergy (Verified 01/12/25 18:29)
[2025-01-15] MEDS: HEPARIN 25000 UNITS/250 ML IV (15:46)
[2025-01-15 16:49] LABS: Glucose - Point of Care 201 mg/dl (70-99)
[2025-01-15] MEDS: LIPITOR 80 MG PO (17:46)
[2025-01-15 21:20] LABS: Glucose - Point of Care 305 mg/dl (70-99)
[2025-01-15] MEDS: CATAPRES 0.1 MG PO (21:29)
[2025-01-15] MEDS: SEROQUEL 200 MG PO (21:30)
[2025-01-15] MEDS: NOVOLOG FLEXPEN 10 UNITS SC (21:57)
[2025-01-15 23:21] LABS: APTT > 200 Sec (23.4-35.0)
[2025-01-16] VITALS (9 sets, daily range): BP systolic 75–134; BP diastolic 43–74
[2025-01-16 07:41] LABS: Glucose - Point of Care 145 mg/dl (70-99)
[2025-01-16 07:59] LABS: APTT 57.7 Sec (23.4-35.0)
[2025-01-16 08:18] LABS: Hematocrit 28.6 % (37.0-47.0); Mean Corpuscular Hgb 18.5 pg (27.0-31.0); Mean Corpuscular Volume 66.1 fL (81.0-99.0); Mean Platelet Volume 9.7 fL (7.4-10.4); Platelet Count 287 10^3/uL (130-400); Red Blood Cell Count 4.33 10^6/uL (4.20-5.40); Red Cell Dist. Width 25.5 % (11.5-14.5); White Blood Cell Count 6.6 10^3/uL (4.8-10.8)
[2025-01-16] MEDS: NOVOLOG FLEXPEN-MODERATE RESISTANCE SC (08:20)
[2025-01-16] MEDS: METHADONE 100 MG/10 ML PO (08:20)
[2025-01-16] MEDS: GLUCOTROL 2.5 MG PO ×2 (08:21→16:36)
[2025-01-16] MEDS: LAMICTAL 200 MG PO (08:21)
[2025-01-16] MEDS: ESKALITH ER (EXTENDED RELEASE) 450 MG PO ×2 (08:22→20:33)
[2025-01-16] MEDS: NICODERM TRANSDERMAL 14 MG TRANSDERM (08:22)
[2025-01-16 08:24] LABS: Blood Urea Nitrogen 6 mg/dl (7-17); Calcium 9.7 mg/dl (8.4-10.2); Carbon Dioxide 22 mmol/L (22-30); Chloride 108 mmol/L (98-107); Estimated Creatinine Clearance 119 ml/min; Glucose 140 mg/dl (70-99); Sodium 139 mmol/L (135-145); eGFR > 60.00
--- NOTE | 2025-01-16 08:24 | W.PN.CD ---
Today's Communication / Plan
-
- N.p.o. after midnight for FABRICIO/plus minus ILR
Impression / Plan
-
I/P: 49F with prior heroin usage (sobriety for 10 years, on methadone), hep C, bipolar depression, GERD, and diabetes who presented to the emergency department 01/12/2025 with a chief complaint of elevated blood glucose, dizziness, and vomiting ->
Large CVA
CVA, large, acute, left cerebellum
- MRI with mild petechial hemorrhage and right cerebellum infarcts x 2
- On DAPT (clopidogrel and aspirin) for 90 days then lifelong aspirin
- Started on atorvastatin 80 mg
- Echocardiogram without acute findings
- B/L LE US ordered
PAD
- Possible partial left vertebral artery occlusion
- Abdomen pelvis CT suggestive of thrombus in aortic lumen, appearance suggesting a more proximal origin
Anemia, macrocytic
- Received 1 unit of PRBCs and started on intravenous iron by primary service
Hypertension, chronic
- BP stable on clonidine as an outpatient
NIDDM, uncontrolled, HgbA1c 9.2%, per primary service
Opioid dependence, on methadone
- Heroin sobriety for 10 years
Daily tobacco abuse, cessation recommended
Obesity, BMI 38, she would benefit from weight loss
Physical Exam
Vital Signs/Labs
Vital Signs
Temp Pulse Resp BP Pulse Ox
98.4 F 55 18 111/47 100
01/16/25 07:50 01/16/25 07:50 01/16/25 07:50 01/16/25 07:50 01/16/25 07:50
01/16/25 07:36
APTT 57.7 Sec (23.4-35.0) H 01/16/25 07:36
Magnesium 1.9 mg/dl (1.6-2.3) 01/13/25 06:06
Triglycerides 200 mg/dl (10-149) H 01/13/25 06:06
LDL Cholesterol, Calc 60 mg/dl 01/13/25 06:06
VLDL Cholesterol, Calc 40 mg/dl (0-30) H 01/13/25 06:06
HDL Cholesterol 30 mg/dl 01/13/25 06:06
Physical Exam
Constitutional: No acute distress and Comfortable
EENT: Anicteric and Moist mucous membranes
Cardiovascular: Rhythm & rate is regular, Pedal edema is absent and JVD pressure is normal
Respiratory: Respiratory effort normal, Lungs clear to auscul. and Wheeze Absent
GI: Soft and Non tender
Neuro/Psych: Alert, Oriented and AO x 3
Other: Skin (Multiple tattoos noted. Patient has tattoo at the anterior chest at the location of loop implantation. We discussed location of the loop implantation)
Data Reviewed
-
Date of Service: January 16, 2025
Medical Decision Making: Reviewed Test Results, Test Interpretation and Review of Case with other Provider
EKG: Tracing Personally Visualized and interpreted
Echo: Report Reviewed by me
Labs: Labs Reviewed by me
Old Records: Reviewed
[2025-01-16] MEDS: HEPARIN 25000 UNITS/250 ML IV (10:01)
[2025-01-16 11:48] LABS: Glucose - Point of Care 217 mg/dl (70-99)
[2025-01-16] MEDS: NOVOLOG FLEXPEN-MODERATE RESISTANCE 3 UNITS SC (11:52)
--- NOTE | 2025-01-16 12:27 | W.PN.HOSP.TC ---
Today's Communication/Plan
-
FABRICIO on Friday
Assessment / Plan
Assessment / Plan
IMPRESSION:
49 y.o with history of diabetes, hyperlipidemia, bipolar d/o, former opioid dependence now on methadone presenting with dizziness starting 8-9pm yesterday, associated nausea vomiting and found to have hyperglycemia and L cerebellar cva.
Seen by neurology and started on aspirin/Plavix/statin.
Patient also noted to have iron deficiency anemia required blood transfusion.
CT abdomen pelvis with IV contrast and p.o. contrast obtained to rule out underlying malignancy.
No malignancy noted but patient noted to have aortic thrombosis suggesting embolic phenomena.
Cardiology consult for FABRICIO which will be done on Friday.
Hematology consulted, continue heparin drip, discharged on Xarelto
Assessment/plan:
Large Acute CVA left cerebellum. Mild petechial hemorrhage
Right cerebellum infarcts x 2
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
- out of window no TNK
- Initially started aspirin, plavix -initial plan plan for then stop plavix.
- continue atorvastatin 80
- mri brain noted
- echo-EF 55-60%. Interartial septum is intact w/no evidence of shunting by color flow doppler.
- LDL at 60. A1c 9.2.
- pt/ot
- BP well controlled as already on clonidine as outpatient 105/51
- appreciate neurology recs
01/15
CT abdomen and pelvis with IV contrast showed Findings suggesting thrombus within the aorta as described, suggesting embolic origin.
Aspirin Plavix discontinued for now and patient was started on heparin drip. (Will be discharged on Xarelto)
Cardiology consult for FABRICIO Friday.
Hematology consulted
01/16
N.p.o. after midnight for FABRICIO tomorrow.
Continue heparin drip
Rule out hypercoagulable status.
Continue heparin drip.
Hematology consulted-continue heparin drip, discharged on Xarelto
Diabetes mellitus type 2 uncontrolled
-A1c at 9.2
-Increase metformin to 1000 mg twice daily
- started patient on glipizide
-ISS
Anemia - microcytic. History of iron deficiency
- Severe iron deficiency noted. Patient states of chronic anemia.
- Denies any blood in urine or stool. Patient is due for colonoscopy. Denies any change in consistency of bm. Denies any weight loss.
- Start patient IV iron
- Hemoglobin of 8.1 s/p 1 unit of PRBC so far. No luminal bleeding noted so far. No bm.
- likely outpatient colonoscopy
- Hematology consulted.
Nausea/vomiting/constipation
-improved.
Opioid dependence On daily basis
- ecg QTc of 453
- continue methadone 100 mg daily
Bipolar disorder
- continue lithium hs, lamictal am, quetiapine and clonidine hs
daily tobacco abuse
-Smokes 1 pack a day
-Nicotine patch offered
-Counseled on complete tobacco cessation. Patient verbalized understanding.
Morbid obesity due to excess calories
affects all aspect of medical care
CODE STATUS: Full code
DVT prophylaxis: Heparin drip.
Diet: Diabetic diet
Disposition: FABRICIO on Friday.
Total time spent on today's encounter was 65 minutes which included time spent in counseling the patient/family regarding diagnosis and treatment plan as listed above, goals of care, and symptom management. Case was discussed with nursing staff,
specialists, and care coordinators/case management. All labs and imaging personally reviewed by me. Remainder the time spent in detailed review of previous records, lab data, imaging, and other medical provider documentation.
Anticipated Discharge: 24 - 48 hours
Subjective/Interval History
-
Date of Service: January 16, 2025
Patient seen and examined at bedside, denies any chest pain or shortness of breath, no abdominal pain, no nausea, no vomiting, no diarrhea or constipation.
Still with left-sided numbness.
Objective Data
-
Labs:
Laboratory Results
01/16/25 01/16/25
07:36 14:20
WBC 6.6
Hgb 8.0 L
Hct 28.6 L
Plt Count 287
APTT 57.7 H Pending
Sodium 139
Potassium 4.0
Chloride 108 H
Carbon Dioxide 22
BUN 6 L
Creatinine 0.7
Glucose 140 H
Calcium 9.7
Vital Signs:
Vital Signs
Temp Pulse Resp BP Pulse Ox
99.3 F 78 18 134/74 98
01/16/25 11:37 01/16/25 11:37 01/16/25 11:37 01/16/25 11:37 01/16/25 11:37
I&O
01/15/25 01/16/25 01/17/25
06:59 06:59 06:59
Intake Total 2720 / 2720 790 / 790 180 / 180
Balance 2720 / 2720 790 / 790 180 / 180
Physical Exam
-
General: Well Developed, Well Nourished, No Apparent Distress and Comfortable
HEENT: Normocephalic, Atraumatic, Moist Mucous Membranes, No Ptosis, PERRLA and Nose Appears Normal
Respiratory: Clear to Auscultation and Non Labored Respirations
Cardiac: Regular Rhythm and S1/S2
Breast: Deferred by me
GI: Soft, Nontender, Nondistended and Normal Bowel Sounds
Genito-urinary: No Costovertebral Tender
Musculoskeletal: No Clubbing, No Cyanosis and No Edema
Skin: Warm
Neuro: Awake, Alert, Oriented, AO x 3 and No Motor Deficits; Negative No Sensory Deficits (Left-sided numbness )
Psych: Calm
Data Reviewed
-
Diagnostic Radiology: Image personally visualized and interpreted and Report Reviewed by me
CT Scan: Image personally visualized and interpreted and Report Reviewed by me
Ultrasound: Image personally visualized and interpreted and Report Reviewed by me
MRI: Image personally visualized and interpreted and Report Reviewed by me
Medical Tests (Nuc Med, Echo etc): Image personally visualized and interpreted and Report Reviewed by me
Labs: Labs Reviewed by me
Old Records: Reviewed
[2025-01-16] MEDS: FERRLECIT 110 MG IV (13:27)
[2025-01-16 14:45] LABS: APTT 81.2 Sec (23.4-35.0)
[2025-01-16 16:30] LABS: Glucose - Point of Care 180 mg/dl (70-99)
[2025-01-16] MEDS: NOVOLOG FLEXPEN-MODERATE RESISTANCE 1 UNITS SC (16:36)
[2025-01-16] MEDS: LIPITOR 80 MG PO (16:37)
[2025-01-16] MEDS: TYLENOL 650 MG PO (18:25)
[2025-01-16 20:39] LABS: APTT 107.3 Sec (23.4-35.0)
[2025-01-16] MEDS: FIORICET 1 TAB PO (21:34)
[2025-01-16] MEDS: SEROQUEL 200 MG PO (21:36)
[2025-01-16 21:39] LABS: Glucose - Point of Care 232 mg/dl (70-99)
[2025-01-16] MEDS: CATAPRES 0.1 MG PO (21:46)
--- NOTE | 2025-01-16 23:35 | PTCARENOTE ---
Pt still c/o R sided headache rating it 7/10, unrelieved by Tylenol. 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 Pt observed sleeping after administering med.
[2025-01-17] MEDS: HEPARIN 25000 UNITS/250 ML IV ×2 (01:53→17:18)
[2025-01-17 03:25] VITALS: BP 93/36
[2025-01-17 05:51] LABS: Glucose - Point of Care 155 mg/dl (70-99)
[2025-01-17] MEDS: NOVOLOG FLEXPEN-MODERATE RESISTANCE 1 UNITS SC ×3 (06:02→17:57)
[2025-01-17 06:53] LABS: APTT 90.2 Sec (23.4-35.0)
[2025-01-17 07:40] VITALS: BP 105/45
[2025-01-17 08:16] LABS: Glucose - Point of Care 168 mg/dl (70-99)
[2025-01-17 09:08] LABS: Blood Urea Nitrogen 8 mg/dl (7-17); Calcium 9.6 mg/dl (8.4-10.2); Carbon Dioxide 22 mmol/L (22-30); Chloride 109 mmol/L (98-107); Estimated Creatinine Clearance 119 ml/min; Glucose 172 mg/dl (70-99); Potassium 4.4 mmol/L (3.5-5.1); Sodium 136 mmol/L (135-145); eGFR > 60.00
[2025-01-17 09:11] LABS: Hematocrit 28.7 % (37.0-47.0); Hemoglobin 7.7 g/dL (12.0-16.0); Mean Corp Hgb Conc. 26.8 g/dL (33.0-37.0); Mean Corpuscular Volume 67.2 fL (81.0-99.0); Mean Platelet Volume 10.3 fL (7.4-10.4); Platelet Count 297 10^3/uL (130-400); Red Blood Cell Count 4.27 10^6/uL (4.20-5.40); Red Cell Dist. Width 26.9 % (11.5-14.5); White Blood Cell Count 8.4 10^3/uL (4.8-10.8)
[2025-01-17] MEDS: LAMICTAL 200 MG PO (09:28)
[2025-01-17] MEDS: GLUCOTROL 2.5 MG PO ×2 (09:28→17:20)
[2025-01-17] MEDS: ESKALITH ER (EXTENDED RELEASE) 450 MG PO ×2 (09:28→20:15)
[2025-01-17] MEDS: METHADONE 100 MG/10 ML PO (09:29)
[2025-01-17] MEDS: NICODERM TRANSDERMAL 14 MG TRANSDERM (09:29)
[2025-01-17 11:00] VITALS: BP 103/55
--- NOTE | 2025-01-17 11:28 | W.PN.CD ---
Today's Communication / Plan
-
PFO seen on FABRICIO with grade 1 [id number] shunt
Continue hematology workup for multiple arterial emboli
If heme workup is negative and plan is to stop AC, we will do a 2-week ambulatory monitor and then close PFO if monitor is unremarkable
Impression / Plan
-
I/P: 49F with prior heroin usage (sobriety for 10 years, on methadone), hep C, bipolar depression, GERD, and diabetes who presented to the emergency department 01/12/2025 with a chief complaint of elevated blood glucose, dizziness, and vomiting ->
Large CVA. Found to have L vertebral artery occlusion and aortic thrombus, for which hematology is following.
CVA, large, acute, left cerebellum
- Brain MRI 01/13/2025: Large acute infarct in the left cerebellum, mild petechial hemorrhage, 2 tiny acute infarcts in right cerebellum, absent flow in left vertebral artery
- Work-up thus far has revealed L vertebral artery occlusion, thromboembolism in the descending abdominal aorta, negative DVT study, and small PFO with grade 1 shunt
- Initially on DAPT, but this was switched to therapeutic anticoagulation with heparin on 01/14/2025 in light of aortic thrombus
- Continue atorvastatin 80 mg
- Continue hematology work-up for multiple arterial emboli (vertebral artery, descending aorta)
- If hematology work-up is unremarkable and plan is to stop AC, we will check a 2 week monitor to screen for AF. If no AF, we will plan for PFO closure as there is no other cause of her stroke
PFO
- Seen on FABRICIO 01/17/2025. Grade 1 [id number] shunt.
- ROPE score 5, 34% chance that stroke is due to PFO
- Will plan for PFO closure if hematology workup and 2-week ambulatory monitor are unremarkable
Arterial thrombi
- Hematology following
- Work-up and plan as outlined above
Anemia, macrocytic
- Received 1 unit of PRBCs and started on intravenous iron by primary service
- Heme following
Hypertension, chronic
- BP stable on clonidine as an outpatient
NIDDM, uncontrolled, HgbA1c 9.2%, per primary service
Opioid dependence, on methadone
- Heroin sobriety for 10 years
Daily tobacco abuse, cessation recommended
Obesity, BMI 38, she would benefit from weight loss
Subjective: Feels well. No complaints.
Telemetry: Sinus rhythm.
Physical Exam
Vital Signs/Labs
Vital Signs
Temp Pulse Resp BP Pulse Ox
97.8 F 49 16 105/45 98
01/17/25 07:40 01/17/25 07:40 01/17/25 07:40 01/17/25 07:40 01/17/25 07:40
01/17/25 06:20
01/17/25 06:20
APTT 90.2 Sec (23.4-35.0) H 01/17/25 06:20
Magnesium 1.9 mg/dl (1.6-2.3) 01/13/25 06:06
Triglycerides 200 mg/dl (10-149) H 01/13/25 06:06
LDL Cholesterol, Calc 60 mg/dl 01/13/25 06:06
VLDL Cholesterol, Calc 40 mg/dl (0-30) H 01/13/25 06:06
HDL Cholesterol 30 mg/dl 01/13/25 06:06
Physical Exam
Constitutional: No acute distress and Comfortable
Cardiovascular: Rhythm & rate is regular, Pedal edema is absent, S1S2 is normal and Murmur/rub/gallop absent
Respiratory: Respiratory effort normal
Neuro/Psych: AO x 3
Data Reviewed
-
Date of Service: January 17, 2025
Medical Decision Making: Reviewed Test Results, Independent Historian Assessment, Test Interpretation and Review of Case with other Provider
EKG: Tracing Personally Visualized and interpreted
Echo: Tracing Personally Visualized and interpreted
X-Ray/CT/US/MRI/NUC/PET: Image Personally Visualized and interpreted, Report Reviewed by me, Discussed with Physician and Discussed with Patient
Labs: Labs Reviewed by me
[2025-01-17 12:03] LABS: Reticulocyte Count 3.1 % (0.4-2.8)
[2025-01-17 12:10] LABS: Glucose - Point of Care 183 mg/dl (70-99)
--- NOTE | 2025-01-17 12:18 | W.PN.HOSP.TC ---
Addendum entered and electronically signed by Faisal Robb MD 01/17/25 13:29:
Discussed with Dr. Christian stone banker who discussed with oncologist and plan with outpatient EGD and colonoscopy-patient patient was informed of this. Patient was agreeable for outpatient procedures.
Patient remains constipated we will start with bowel regimen If no bowel movements later today then start enema.
Original Note:
Today's Communication/Plan
-
GI eval
clears if plan for procedures tomm
trend hgb
hypercoagulable workup ongoing
cont hep gtt
cont IV iron
Assessment / Plan
Assessment / Plan
IMPRESSION:
49 y.o with history of diabetes, hyperlipidemia, bipolar d/o, former opioid dependence now on methadone presenting with dizziness starting 8-9pm yesterday, associated nausea vomiting and found to have hyperglycemia and L cerebellar cva.
Seen by neurology and started on aspirin/Plavix/statin.
Patient also noted to have iron deficiency anemia required blood transfusion.
CT abdomen pelvis with IV contrast and p.o. contrast obtained to rule out underlying malignancy.
No malignancy noted but patient noted to have aortic thrombosis suggesting embolic phenomena.
Cardiology consult for FABRICIO which will be done on Friday.
Hematology consulted, continue heparin drip, discharged on Xarelto
Assessment/plan:
Large Acute CVA left cerebellum. Mild petechial hemorrhage
Right cerebellum infarcts x 2
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
- out of window no TNK
- Initially started aspirin, plavix -initial plan plan for day then stop plavix.
- continue atorvastatin 80
- mri brain noted
- echo-EF 55-60%. Interartial septum is intact w/no evidence of shunting by color flow doppler.
- LDL at 60. A1c 9.2.
- pt/ot
- BP well controlled as already on clonidine as outpatient
- appreciate neurology recs
-CT abdomen and pelvis with IV contrast showed Findings suggesting thrombus within the aorta as described, suggesting embolic origin.
-Aspirin Plavix discontinued for now and patient was started on heparin drip. (Will be discharged on Xarelto)
-Cardiology s/p FABRICIO with small PFO w grade I shunt. no thrombus in the aortic arch or ascending aorta. Left to right shunt.
-Rule out hypercoagulable status.
-Continue heparin drip.
-Hematology consulted-continue heparin drip, discharged on Xarelto
Diabetes mellitus type 2 uncontrolled
-A1c at 9.2
-Increase metformin to 1000 mg twice daily
started patient on glipizide
-ISS
Anemia - microcytic. History of iron deficiency
- Severe iron deficiency noted. Patient states of chronic anemia.
- Denies any blood in urine or stool. Patient is due for colonoscopy. Denies any change in consistency of bm. Denies any weight loss.
- Start patient IV iron
- Hemoglobin of 7.7 s/p 1 unit of PRBC so far. No luminal bleeding noted so far.
- d/w with heme-recs GI eval for EGD/Colonoscopy
Nausea/vomiting/constipation
-improved.
Opioid dependence On daily basis
- ecg QTc of 453
- continue methadone 100 mg daily
Bipolar disorder
- continue lithium hs, lamictal am, quetiapine and clonidine hs
daily tobacco abuse
-Smokes 1 pack a day
-Nicotine patch offered
-Counseled on complete tobacco cessation. Patient verbalized understanding.
Morbid obesity due to excess calories
affects all aspect of medical care
CODE STATUS: Full code
DVT prophylaxis: Heparin drip.
d/w with heme, oncology and cardiology
Anticipated Discharge: > 48 hours
Subjective/Interval History
-
Date of Service: January 17, 2025
seen earlier this morning
Objective Data
-
Labs:
Laboratory Results
01/17/25
06:20
WBC 8.4
Hgb 7.7 L
Hct 28.7 L
Plt Count 297
APTT 90.2 H
Sodium 136
Potassium 4.4
Chloride 109 H
Carbon Dioxide 22
BUN 8
Creatinine 0.7
Glucose 172 H
Calcium 9.6
Vital Signs:
Vital Signs
Temp Pulse Resp BP Pulse Ox
97.8 F 49 16 105/45 98
01/17/25 07:40 01/17/25 07:40 01/17/25 07:40 01/17/25 07:40 01/17/25 09:40
I&O
01/16/25 01/17/25 01/18/25
06:59 06:59 06:59
Intake Total 790 / 790 1140 / 1140
Balance 790 / 790 1140 / 1140
Physical Exam
-
General: Well Developed, Well Nourished, No Apparent Distress, Comfortable and Morbidly Obese
HEENT: Normocephalic, Atraumatic, Moist Mucous Membranes, No Ptosis, PERRLA and Nose Appears Normal
Respiratory: Clear to Auscultation and Non Labored Respirations
Cardiac: Regular Rhythm and S1/S2
Breast: Deferred by me
GI: Soft, Nontender, Nondistended and Normal Bowel Sounds
Genito-urinary: No Costovertebral Tender
Musculoskeletal: No Clubbing, No Cyanosis and No Edema
Skin: Warm
Neuro: Awake, Alert, Oriented, AO x 3 and No Motor Deficits; Negative No Sensory Deficits (Left-sided numbness )
Psych: Calm
Data Reviewed
-
Total Time Spent with Patient (in minutes): 55
[2025-01-17] MEDS: FERRLECIT 110 MG IV (13:13)
[2025-01-17] MEDS: SENOKOT-S 1 TABLET PO ×2 (13:40→20:15)
[2025-01-17] MEDS: MILK OF MAGNESIA 30 ML PO (13:40)
[2025-01-17 15:40] VITALS: BP 96/41
[2025-01-17 16:43] LABS: Glucose - Point of Care 160 mg/dl (70-99)
[2025-01-17 16:52] LABS: ALT (SGPT) 25 U/L (0-35); AST (SGOT) 26 U/L (14-36); Albumin 3.8 g/dl (3.5-5.0); Alkaline Phosphatase 119 U/L (38-126); LDH 247 U/L (120-246); Total Bilirubin 0.2 mg/dl (0.2-1.3); Total Protein 6.4 g/dl (6.3-8.2)
[2025-01-17] MEDS: LIPITOR 80 MG PO (17:20)
[2025-01-17] MEDS: GLUCOPHAGE 1000 MG PO (17:24)
[2025-01-17 19:47] VITALS: BP 117/50
--- NOTE | 2025-01-17 20:41 | W.PN.ONC2 ---
Today's Communication / Plan
-
Flow cytometry for CD55 and CD59, hemolysis labs, eval for PNH.
Needs EGD and colonoscopy to exclude occult malignancy in pt with unprovoked clot and unexplained iron deficiency.
Gabapentin HS for TANG.
Impression
Impression
- embolic CVA with vertebral artery occlusion
- thrombus involving abdominal aorta, embolic
- iron deficiency anemia
- hx of GERD
Plan
Plan
# Embolic event
- imaging with large region of increased signal intensity on diffusion with diminished signal intensity on the ADC map consistent with acute infarct involving the left cerebellum measuring up to 4.5 cm in diameter, 2 tiny sub-5 mm acute infarcts are
present in the right cerebellum, thrombus involving abdominal aorta. findings concerning for embolic process.
- no hx of arrhythmia, autoimmune conditions, recent infections. non-toxic appears. no obvious clot or vegetation on TTE. cardiology planning for FABRICIO with possible linq placement friday.
- neurology initially started on ASA, plavix however switched to heparin after aortic thrombus seen. agree with AC. pt should be transitioned to DOAC on discharge (family says preferred Xarelto based on coverage).
- started on statin.
- hereditary thrombophilia unlikely with only arterial involvement, no strong family or personal hx of venous clots. check LA, B2G antibodies, AcL Ab. can consider MPN testing outpt however CBC without findings suggestive for this.
# Iron deficiency anemia
- serial CBCs over past 1.5 years show a gradual decline in hgb from 11.3 g/dl in 07/2023 to 7.6 g/dl on admission, drop to 6.3 g/dl s/p pRBCs. hgb up to 8.1 g/dl.
- w/u c/s with severe iron deficiency. agree with IV iron repletion.
- denies heavy menses, melena, BRBPR. ordered stool hemoccult. will need GI evaluation outpt.
- benefits of AC outweigh her anemia at this time however will need close CBC monitoring and management of NIKKO if ongoing issues michelle on AC.
- will arrange hematology follow up on discharge.
- CBC daily. transfuse for hgb < 7.0 g/dl or < 8.0 g/dl if active bleed confirmed.
will continue to follow.
01/17/25
Combination of unexplained iron deficiency and unprovoked clot raises issue of possible occult GI maligancy.
Arterial hypercoagulable state can be seen with occult malignancy as well as APLA.
D/w GI, best to wait on upper and lower endoscopy until more time after FABRICIO.
PNH also a possibility. FLow for CD55 and CD59, hemolysis labs.
Gabapentin HS for TANG/insomnia.
Subjective/Objective
Chief Complaint
Heme/Onc follow up of stroke
Subjective
c/o TANG.
Vital Signs:
Vital Signs
Temp Pulse Resp BP Pulse Ox
99 F 64 16 117/50 97
01/17/25 19:47 01/17/25 19:47 01/17/25 19:47 01/17/25 19:47 01/17/25 19:47
Lab Results:
Laboratory Data
WBC 8.4 10^3/uL (4.8-10.8) 01/17/25 06:20
Hgb 7.7 g/dL (12.0-16.0) L 01/17/25 06:20
Plt Count 297 10^3/uL (130-400) 01/17/25 06:20
APTT 90.2 Sec (23.4-35.0) H 01/17/25 06:20
eGFR > 60.00 01/17/25 06:20
Physical Exam
Awake, alert, non-toxic
Orders
Orders
Orders From Last 24 Hours
01/17/25 06:20
Haptoglobin [S] Routine
01/17/25 11:26
Add On- LAB Routine
01/17/25 11:32
Add On- LAB Routine
01/17/25 22:00
Gabapentin [Neurontin] 200 mg PO HS
[2025-01-17] MEDS: CATAPRES 0.1 MG PO (21:12)
[2025-01-17] MEDS: SEROQUEL 200 MG PO (21:12)
[2025-01-17] MEDS: NEURONTIN 200 MG PO (21:12)
[2025-01-17 21:28] LABS: Glucose - Point of Care 189 mg/dl (70-99)
[2025-01-17 23:43] VITALS: BP 99/37
[2025-01-18 01:26] LABS: Beta-2-Glycoprotein I Ab. IgG <10 SGU (<=20); Beta-2-Glycoprotein I Ab. IgM <10 SMU (<=20)
[2025-01-18 03:12] VITALS: BP 98/39
[2025-01-18 07:12] LABS: % Basophils 0.8 % (0-2); % Eosinophils 3.1 % (0-6); % Immature Granulocytes 0.4 % (0-0.5); % Lymphocytes 24.3 % (20.5-51.1); % Monocytes 5.9 % (1.7-9.3); % Neutrophils 65.5 % (42.2-75.2); Absolute Basophils 0.1 10^3/uL (0-0.2); Absolute Eosinophils 0.2 10^3/uL (0-0.7); Absolute Lymphocytes 1.9 10^3/uL (1.2-3.4); Absolute Monocytes 0.5 10^3/uL (0.1-0.6); Absolute Neutrophils 5.2 10^3/uL (1.4-6.5); Hematocrit 29.3 % (37.0-47.0); Hemoglobin 8.1 g/dL (12.0-16.0); Mean Corp Hgb Conc. 27.6 g/dL (33.0-37.0); Mean Corpuscular Hgb 18.8 pg (27.0-31.0); Mean Platelet Volume 9.6 fL (7.4-10.4); Nucleated Red Blood Cells % 0 %; Platelet Count 291 10^3/uL (130-400); Red Blood Cell Count 4.31 10^6/uL (4.20-5.40); Red Cell Dist. Width 28.1 % (11.5-14.5); White Blood Cell Count 7.9 10^3/uL (4.8-10.8)
[2025-01-18 07:13] LABS: APTT 98.7 Sec (23.4-35.0)
[2025-01-18 07:45] VITALS: BP 100/42
[2025-01-18 07:59] LABS: Blood Urea Nitrogen 8 mg/dl (7-17); Calcium 9.3 mg/dl (8.4-10.2); Carbon Dioxide 21 mmol/L (22-30); Chloride 111 mmol/L (98-107); Estimated Creatinine Clearance 119 ml/min; Glucose 120 mg/dl (70-99); Potassium 4.1 mmol/L (3.5-5.1); Sodium 138 mmol/L (135-145); eGFR > 60.00
[2025-01-18 08:07] LABS: Glucose - Point of Care 142 mg/dl (70-99)
[2025-01-18] MEDS: NOVOLOG FLEXPEN-MODERATE RESISTANCE SC (08:37)
[2025-01-18] MEDS: METHADONE 100 MG/10 ML PO (08:42)
[2025-01-18] MEDS: CITROMA 300 ML PO (08:42)
[2025-01-18] MEDS: GLUCOTROL 2.5 MG PO (08:43)
[2025-01-18] MEDS: NICODERM TRANSDERMAL 14 MG TRANSDERM (08:43)
[2025-01-18] MEDS: LAMICTAL 200 MG PO (08:43)
[2025-01-18] MEDS: ESKALITH ER (EXTENDED RELEASE) 450 MG PO (08:43)
[2025-01-18] MEDS: GLUCOPHAGE 1000 MG PO (08:44)
[2025-01-18] MEDS: SENOKOT-S 1 TABLET PO (08:44)
--- NOTE | 2025-01-18 09:14 | W.PN.UPDATE ---
Update Note
Progress Note Update
Outpatient follow-up requested with our office and will be put in DC summary
Plan will be for 2 week monitor and possible PFO closure if heme work-up is negative and plan is NOT for shelter AC
[2025-01-18] MEDS: HEPARIN 25000 UNITS/250 ML IV (09:54)
[2025-01-18 11:01] VITALS: BP 93/45
--- NOTE | 2025-01-18 12:08 | W.PN.HOSP.TC ---
Today's Communication/Plan
-
check abd xray
bowel regimen
transition to xarelto
dc once moving bowel
Assessment / Plan
Assessment / Plan
IMPRESSION:
49 y.o with history of diabetes, hyperlipidemia, bipolar d/o, former opioid dependence now on methadone presenting with dizziness starting 8-9pm yesterday, associated nausea vomiting and found to have hyperglycemia and L cerebellar cva.
Seen by neurology and started on aspirin/Plavix/statin.
Patient also noted to have iron deficiency anemia required blood transfusion.
CT abdomen pelvis with IV contrast and p.o. contrast obtained to rule out underlying malignancy.
No malignancy noted but patient noted to have aortic thrombosis suggesting embolic phenomena.
Cardiology consult for FABRICIO which will be done on Friday.
Hematology consulted, continue heparin drip, discharged on Xarelto
Assessment/plan:
Large Acute CVA left cerebellum. Mild petechial hemorrhage
Right cerebellum infarcts x 2
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
- out of window no TNK
- Initially started aspirin, plavix -initial plan plan for then stop plavix.
- continue atorvastatin 80
- mri brain noted
- echo-EF 55-60%. Interartial septum is intact w/no evidence of shunting by color flow doppler.
- LDL at 60. A1c 9.2.
- pt/ot
- BP well controlled as already on clonidine as outpatient
- appreciate neurology recs
-CT abdomen and pelvis with IV contrast showed Findings suggesting thrombus within the aorta as described, suggesting embolic origin.
-Aspirin Plavix discontinued for now and patient was started on heparin drip. (Will be discharged on Xarelto)
-Cardiology s/p FABRICIO with small PFO w grade I shunt. no thrombus in the aortic arch or ascending aorta. Left to right shunt. OP f/u with cards w/2 weeks monitor to assess for afib and PFO closure possibly later.
-Rule out hypercoagulable status.
-Continue heparin drip and transition to xarelto
-Hematology consulted- hypercoagulable initiated.
Diabetes mellitus type 2 uncontrolled
-A1c at 9.2
-Increase metformin to 1000 mg twice daily
started patient on glipizide
-ISS
Anemia - microcytic. History of iron deficiency
- Severe iron deficiency noted. Patient states of chronic anemia.
- Denies any blood in urine or stool or heavy menses. Patient is due for colonoscopy. Denies any change in consistency of bm. Denies any weight loss.
- Start patient IV iron and po iron on dc. Also added b12/folate supplementation
- Hemoglobin of 8.1 s/p 1 unit of PRBC so far. No luminal bleeding noted so far.
- d/w with heme and GI Dr. Christian with plan for EGD/Colonoscopy as outpatient.
Nausea/vomiting/constipation
-Check abdomen xray as concern for Ileus
-s/p citroma/senna/colace/miralax
-may need enema
Opioid dependence On daily basis
- ecg QTc of 453
- continue methadone 100 mg daily
Bipolar disorder
- continue lithium hs, lamictal am, quetiapine and clonidine hs
daily tobacco abuse
-Smokes 1 pack a day
-Nicotine patch offered
-Counseled on complete tobacco cessation. Patient verbalized understanding.
Morbid obesity due to excess calories
affects all aspect of medical care
CODE STATUS: Full code
DVT prophylaxis: Heparin drip.
discussed w/patient mother over the phone in details
Anticipated Discharge: Within 24 hours
Subjective/Interval History
-
Date of Service: January 18, 2025
Remains constipated
no nausea or vomiting
Objective Data
-
Labs:
Laboratory Results
01/18/25
06:35
WBC 7.9
Hgb 8.1 L
Hct 29.3 L
Plt Count 291
APTT 98.7 H
Sodium 138
Potassium 4.1
Chloride 111 H
Carbon Dioxide 21 L
BUN 8
Creatinine 0.7
Glucose 120 H
Calcium 9.3
Vital Signs:
Vital Signs
Temp Pulse Resp BP Pulse Ox
98.7 F 66 18 93/45 94
01/18/25 11:01 01/18/25 11:01 01/18/25 11:01 01/18/25 11:01 01/18/25 11:01
I&O
01/17/25 01/18/25 01/19/25
06:59 06:59 06:59
Intake Total 1140 / 1140 480 / 480
Balance 1140 / 1140 480 / 480
[2025-01-18 12:18] LABS: Glucose - Point of Care 152 mg/dl (70-99)
[2025-01-18] MEDS: XARELTO 15 MG PO (13:07)
[2025-01-18] MEDS: FERRLECIT 110 MG IV (13:07)
[2025-01-18] MEDS: NOVOLOG FLEXPEN-MODERATE RESISTANCE 1 UNITS SC (13:08)
--- NOTE | 2025-01-18 13:46 | CM ---
Met with patient who requested a list of local MDs. Will provide information as patient wants to switch her provider.
Plan: Case management will continue to follow and assist with discharge planning. F/U outpatient upon discharge.
--- NOTE | 2025-01-18 15:30 | W.DCSUMMARY ---
Discharge Summary
Discharge Data
Date of Admission: 01/12/25
Date of Discharge: 01/18/25
-
Pending Results: Yes
Additional Pending Results:
Hypercoagulable workup results with machine cell tuber in office
Hospital Course
49 y.o with history of diabetes, hyperlipidemia, bipolar d/o, former opioid dependence now on methadone presenting with dizziness starting 8-9pm yesterday, associated nausea vomiting. Patient was complaining of left-sided decree sensation. Patient
underwent imaging study CAT scan admission which showed subacute infarct of the left cerebellum. Patient underwent MRI of the brain which showed bilateral cerebellar CVA. Patient also had carotid ultrasound. Patient was found to have left
vertebral artery stenosis. Patient was eval by neurology initially was on aspirin and Plavix. Patient also with anemia and received blood transfusion. Patient underwent CT abdomen pelvis which showed patient with aortic thrombus suspected emboli
and thus patient was started on anticoagulation with heparin drip. Patient was eval by cardiology. Patient unable extremity Doppler which was negative for DVT. Patient underwent TTE which was negative for cardiac thrombus per cardiology was
consulted and patient underwent FABRICIO which was negative for cardiac thrombus however it did show grade 1 left to right shunt with PFO. Patient was also eval by oncology and patient underwent hypercoagulable workup which resolved patient went to
follow-up with them in the office. Patient with no luminal bleeding was noted. Patient with severe constipation and finally with aggressive bowel regimen had bowel movements. Recommended patient to continue with aggressive bowel regimen as
patient is on chronic methadone. Patient was tolerating diet without any difficulty. Patient received IV iron transfusion during hospitalization was transition to p.o. iron in addition to vitamin B12 and folic acid supplementation was also
started. Patient hemoglobin remained stabilized. Outpatient patient will need to follow-up with gastroenterology for endoscopy and colonoscopy and also with hematology for further workup. Patient only to follow-up with cardiology for cardiac
monitor and possible PFO closure as outpatient. Patient also with uncontrolled diabetes and metformin dose was increased to 1 g twice daily and glipizide was also started. All patient questions were answered and she was agreeable amenable to
discharge planning home.
Discharge Plan
-
Patient Disposition: Home (Routine Discharge)
Discharge Diagnosis/Procedures: Acute bilateral CVA
Left vertebral artery occlusion
Diabetes mellitus type 2 uncontrolled
Iron deficiency anemia
Nausea, vomiting and constipation
Blood transfusion
Aortic thrombus suspected with embolism
Patent [place] with grade 1 shunt
Condition: Fair
Diet: 2 Gram Sodium and Diabetic, Carb Controlled
Activity: As tolerated
Driving Restrictions: As prior to admission
Blood Work: cbc in 5-7 days via primary doctor
Others Tests: Recommend thyroid Ultrasound w/primary doctor as nodule in the left lobe of thyroid was noted on carotid US.
Instructions: Rivaroxaban, Stroke - Discharge instructions
Referrals:
Stacey López MD [Active] - in two to four weeks
(call to make appt
Follow-up hypercoagulable workup with machine cell tuber)
Chao Christian MD [Active] - None (f/u for EGD/Colonoscopy. )
Gloria Dan CRNP [Specified Professional Personl] - 02/18/25 8:40 am
Adele Harrington DO [Family Provider] - in less than 1 week
Prescriptions:
New
sennosides-docusate sodium 8.6-50 mg Tablet
1 tab PO BID Qty: 60 0RF
gabapentin 100 mg Capsule
200 mg PO HS 30 Days Qty: 60 0RF
atorvastatin 80 mg Tablet
80 mg PO QPM Qty: 30 0RF
folic acid 1 mg Tablet
1 mg PO DAILY 30 Days Qty: 30 0RF
metformin 1,000 mg tablet
1,000 mg PO BIDWMEAL Qty: 60 0RF
glipizide 2.5 mg tablet
2.5 mg PO BID Qty: 60 0RF
Xarelto 20 mg tablet
See Rx Instructions .ROUTE .COMPLEX Qty: 49 0RF
Rx Instructions:
Take 15mg po bid additional 41 doses then 20mg daily with food
polyethylene glycol 3350 [Miralax] 17 gram powder in packet
17 g PO DAILY Qty: 30 0RF
ferrous sulfate 325 mg (65 mg iron) tablet
325 mg PO DAILY Qty: 30 0RF
Continued
methadone [Methadose] 100 MG/10 ML concentrate
100 mg PO DAILY
lamotrigine [Lamictal] 200 mg Tablet
200 mg PO DAILY
quetiapine [Seroquel] 200 mg Tablet
200 mg PO HS
clonidine HCl 0.1 mg Tablet
0.1 mg PO HS
lithium carbonate 450 mg Tablet Extended Release
450 mg PO BID
omeprazole 40 mg Capsule,Delayed Release(Dr/Ec)
40 mg PO DAILY
Rx Instructions:
HS
Discontinued
metformin 500 mg Tablet
500 mg PO DAILY
Rx Instructions:
evening
Discharge Orders:
Discharge Patient (As Directed); Ordered 01/18/25
Ordered By: Faisal Robb
Discharge Date and Time
Print Language: AMHARIC
[2025-01-18 15:35] VITALS: BP 105/60
[2025-01-18 15:38] LABS: Cardiolipin IgA Antibody <10 APL (<=11); Cardiolipin IgM Antibody <10 MPL (<=12); Cardiolipin Igg Antibody <10 GPL (<=14)
--- NOTE | 2025-01-18 15:44 | W.PN.ONC ---
Today's Communication / Plan
-
d/c on xarelto
outpatient f/u with heme, GI, cardiology
Impression
Impression
- embolic CVA with vertebral artery occlusion
- PFO noted on FABRICIO
- thrombus involving abdominal aorta, embolic
- iron deficiency anemia
- hx of GERD
Plan
Plan
For transition to Xarelto
antiphospholipid panel negative
Further heme w/u as outpatient, including testing for PNH
Continue IV iron while in hospital
Outpatient GI f/u for EGD and colonoscopy
Outpatient cardiology f/u re: PFO
Will arrange outpatient heme f/u in ~2 weeks
Subjective/Objective
Subjective/Objective
Patient seen on am rounds, was walking w/ IV pole through halls. Noted ongoing paresthesias in left arm/leg, but balance and nausea a bit better.
Vital Signs:
Vital Signs
Temp Pulse Resp BP Pulse Ox
98.7 F 66 18 93/45 94
01/18/25 11:01 01/18/25 11:01 01/18/25 11:01 01/18/25 11:01 01/18/25 11:01
Lab Results:
Laboratory Data
WBC 7.9 10^3/uL (4.8-10.8) 01/18/25 06:35
Hgb 8.1 g/dL (12.0-16.0) L 01/18/25 06:35
Plt Count 291 10^3/uL (130-400) 01/18/25 06:35
APTT 98.7 Sec (23.4-35.0) H 01/18/25 06:35
eGFR > 60.00 01/18/25 06:35
[2025-01-18 17:03] LABS: Glucose - Point of Care 150 mg/dl (70-99)
[2025-01-19 23:07] LABS: Anti-Xa Qualitative Interp Present (Not Present); Anticoagulant Med Neutralizati Hepzyme (Not Performed); Hexagonal Phospholipid Confirm Not Performed s (<=7.9); Neutralized PTT-LA Ratio 0.78 (<=1.20); Neutralized dRVTT Screen Ratio Not Performed (<=1.20); PTT-LA Ratio 1.25 (<=1.20); Prothrombin Time 13.6 s (12.0-15.5); Thrombin Time 81.9 s (<=19.5); dRVTT 1.1 Mix Ratio Not Performed (<=1.20); dRVTT Confirmation Ratio Not Performed (<=1.20); dRVTT Screen Ratio 0.78 (<=1.20)
[2025-01-20 05:52] LABS: Haptoglobin 214 mg/dL (30-200)
== END 2025-01-18 18:16 | disposition home or self-care (01) | DRG 64 ==
LOC: 4 EAST ACU 21:56
PROVIDERS: Emergency Medicine; General Practice; Internal Medicine; Internal Medicine Hematology & Oncology; Nurse Practitioner Family; Student in an Organized Health Care Education/Training Program; ADMITTING PHYSICIAN Internal Medicine; ATTENDING PHYSICIAN Hospitalist; CONSULT PHYSICIAN Internal Medicine Cardiovascular Disease; CONSULT PHYSICIAN Internal Medicine Hematology & Oncology; CONSULT PHYSICIAN Psychiatry & Neurology Clinical Neurophysiology; EMERGENCY PHYSICIAN Emergency Medicine; FAMILY PHYSICIAN Family Medicine
PROC: 30233N1 Transfusion of Nonautologous Red Blood Cells into Peripheral Vein, Percutaneous Approach (ICD-10-PCS; 2025-01-13)
PROC: B24BZZ4 Ultrasonography of Heart with Aorta, Transesophageal (ICD-10-PCS; 2025-01-17)
DX: I63.443 Cerebral infarction due to embolism of bilateral cerebellar arteries (principal); I61.4 Nontraumatic intracerebral hemorrhage in cerebellum; D68.69 Other thrombophilia; F11.20 Opioid dependence, uncomplicated; F31.81 Bipolar II disorder; Q21.12 Patent foramen ovale; I74.10 Embolism and thrombosis of unspecified parts of aorta; E11.65 Type 2 diabetes mellitus with hyperglycemia; K21.9 Gastro-esophageal reflux disease without esophagitis; K59.09 Other constipation; B19.20 Unspecified viral hepatitis C without hepatic coma; F43.10 Post-traumatic stress disorder, unspecified; I10 Essential (primary) hypertension; E78.00 Pure hypercholesterolemia, unspecified; E66.01 Morbid (severe) obesity due to excess calories; F17.200 Nicotine dependence, unspecified, uncomplicated; F19.10 Other psychoactive substance abuse, uncomplicated; K59.00 Constipation, unspecified; G43.909 Migraine, unspecified, not intractable, without status migrainosus; D50.9 Iron deficiency anemia, unspecified; I65.02 Occlusion and stenosis of left vertebral artery; Z79.02 Long term (current) use of antithrombotics/antiplatelets; Z79.82 Long term (current) use of aspirin; Z79.84 Long term (current) use of oral hypoglycemic drugs; Z83.2 Family history of diseases of the blood and blood-forming organs and certain disorders involving the immune mechanism; Z68.38 Body mass index [BMI] 38.0-38.9, adult
CPT/HCPCS: 70450; 70551; 74019; 74177; 80048; 80053; 80061; 81003; 81015; 82010; 82248; 82607; 82728; 82746; 82805; 82962; 83010; 83036; 83540; 83550; 83605; 83615; 83735; 85014; 85018; 85025; 85027; 85045; 85520; 85525; 85610; 85613; 85670; 85730; 86146; 86147; 86850; 86900; 86901; 86920; 87070; 87086; 92523; 92610; 93005; 93306; 93312; 93320; 93325; 93880; 93970; 96360; 97110; 97116; 97129; 97163; 97166; 99285; J2916; P9016; Q9967

== ENCOUNTER → 2025-08-03 12:03 | Outpatient (REF) | payer MEDICARE, OTHER, SELFPAY ==
[2025-08-03 13:43] LABS: Microalbumin, Random Urine 0.8 mg/dl (0.6-1.7)
[2025-08-03 13:45] LABS: Hematocrit 38.9 % (37.0-47.0); Hemoglobin 12.1 g/dL (12.0-16.0); Mean Corp Hgb Conc. 31.1 g/dL (33.0-37.0); Mean Corpuscular Volume 84.7 fL (81.0-99.0); Nucleated Red Blood Cells % 0 %; Platelet Count 309 10^3/uL (130-400); Red Cell Dist. Width 15.3 % (11.5-14.5)
[2025-08-03 13:55] LABS: INR 1.13; PT 14.3 Sec (11.4-14.6)
[2025-08-03 14:10] LABS: Glycohemoglobin (HgbA1c) 9.9 % (4.0-5.9)
[2025-08-03 14:24] LABS: ALT (SGPT) 38 U/L (0-35); AST (SGOT) 35 U/L (14-36); Albumin 4.7 g/dl (3.5-5.0); Alkaline Phosphatase 81 U/L (38-126); Blood Urea Nitrogen 12 mg/dl (7-17); Calcium 10.0 mg/dl (8.4-10.2); Carbon Dioxide 26 mmol/L (22-30); Chloride 102 mmol/L (98-107); GGTP 25 U/L (12-43); Glucose 96 mg/dl (70-99); HDL Cholesterol 40 mg/dl; Iron 57 ug/dl (37-170); LDL Cholesterol, Calculated 122 mg/dl; Lithium 1.3 mmol/L (0.6-1.2); Potassium 3.9 mmol/L (3.5-5.1); Sodium 134 mmol/L (135-145); Total Protein 7.7 g/dl (6.3-8.2); Very Low Density Lipoprotein 40 mg/dl (0-30); eGFR > 60.00
[2025-08-03 14:33] LABS: Total Iron Binding Capacity 509 ug/dl (265-497)
[2025-08-03 14:57] LABS: Ferritin 9.5 ng/ml (6.24-137)
[2025-08-04 19:37] LABS: Hepatitis C Antibody Reactive (Negative)
[2025-08-05 13:43] LABS: Syphilis/T. pallidum Ab Reflex Negative (Negative)
== END ==
LOC: REG 12:03
PROVIDERS: ATTENDING PHYSICIAN Family Medicine; FAMILY PHYSICIAN Internal Medicine
DX: Z51.81 Encounter for therapeutic drug level monitoring (principal); Z77.21 Contact with and (suspected) exposure to potentially hazardous body fluids; E03.9 Hypothyroidism, unspecified; F31.9 Bipolar disorder, unspecified; I65.02 Occlusion and stenosis of left vertebral artery; D50.9 Iron deficiency anemia, unspecified; F11.20 Opioid dependence, uncomplicated; E11.10 Type 2 diabetes mellitus with ketoacidosis without coma; I74.09 Other arterial embolism and thrombosis of abdominal aorta; E78.2 Mixed hyperlipidemia
CPT/HCPCS: 36415; 80053; 80061; 80076; 80175; 80178; 82043; 82570; 82728; 82977; 83036; 83540; 83550; 84443; 85025; 85610; 86780; 86803; 87389

== ENCOUNTER 2025-08-16 03:18 | Observation (INO) | payer MEDICARE, OTHER, SELFPAY ==
[2025-08-15 15:11] VITALS: BP 148/67
[2025-08-15 16:06] LABS: Hematocrit 38.0 % (37.0-47.0); Hemoglobin 12.4 g/dL (12.0-16.0); Mean Corp Hgb Conc. 32.6 g/dL (33.0-37.0); Mean Corpuscular Volume 79.2 fL (81.0-99.0); Nucleated Red Blood Cells % 0 %; Platelet Count 460 10^3/uL (130-400); Red Cell Dist. Width 16.2 % (11.5-14.5)
[2025-08-15 16:12] LABS: HCG, Serum Qualitative Screen Negative
[2025-08-15 16:16] LABS: ALT (SGPT) 33 U/L (0-35); AST (SGOT) 25 U/L (14-36); Albumin 4.8 g/dl (3.5-5.0); Alkaline Phosphatase 118 U/L (38-126); Blood Urea Nitrogen 10 mg/dl (7-17); Calcium 10.1 mg/dl (8.4-10.2); Carbon Dioxide 19 mmol/L (22-30); Chloride 100 mmol/L (98-107); Glucose 221 mg/dl (70-99); Potassium 3.7 mmol/L (3.5-5.1); Sodium 132 mmol/L (135-145); Total Protein 7.7 g/dl (6.3-8.2); eGFR > 60.00
[2025-08-15 21:32] VITALS: BP 131/50
[2025-08-15 21:34] VITALS: BMI 34.9
--- NOTE | 2025-08-15 21:45 | ED.GENMED ---
History of Present Illness
<Suri Ellsworth PA-C - Last Filed: 08/16/25 12:29>
General
Chief Complaint: Dizziness
Source: patient
Exam Limitations: none
Time Seen by Provider: 08/15/25 21:35
Nursing documentation reviewed up to this point in time: agreed with
History of Present Illness
History of Present Illness:
Patient is a 49-year-old female with past history of cerebellar CVA who presents to the emergency department with 4 days of vomiting, dizziness, and chills. Patient states that initial symptoms began approximately 4 days ago when she generally
felt unwell. She then states that she developed persistent nausea/vomiting as well as dizziness. She describes the dizziness as a 'sense that her body is moving even when she is stationary'. In addition, she has had some visual changes described
as blurriness without any true double vision. She has not noticed any positional nature to the symptoms. She reports a subjective fever on Friday.
Patient denies any abdominal pain, diarrhea, or urinary symptoms. No other URI symptoms including nasal congestion, cough, sore throat.
Of note�patient did suffer a cerebellar CVA approximately 7 months ago. She states that symptoms seem very similar to those she experienced prior to her stroke.
Patient is currently anticoagulated on Xarelto and compliant with medication.
Past History
<Suri Ellsworth PA-C - Last Filed: 08/16/25 12:29>
Past History
ED Past Medical History: NIDDM, Psychiatric and Other
ED Past Surgical History: Gynecological
Social History
Tobacco: Smoker
Alcohol: Occasional
Drug: Former user and IVDA
Personal: Single
Living: with family
Review of Systems
<Suri Ellsworth PA-C - Last Filed: 08/16/25 12:29>
Review of Systems
Allergies reviewed?: Yes
All Other Systems: ROS reviewed and negative except as documented in HPI and ROS
Phy Exam
<Suri Ellsworth PA-C - Last Filed: 08/16/25 12:29>
Physical Exam
Physical Exam:
Vitals: Hypertensive, otherwise vital signs are stable
General: Patient is well appearing, no acute distress. Nontoxic appearing
Skin: Warm and dry, no rashes or lesions
Head: Normocephalic, atraumatic
Eyes: Sclera nonicteric. EOMs intact. No nystagmus.
Throat: Protecting airway
Neck: Normal ROM, no cervical spine tenderness, no meningismus
Cardiac: Regular rate and rhythm, no murmurs.
Pulm: Normal respiratory effort, no wheezes, rales, rhonchi heard on exam
Abdomen: Abdomen soft and nontender.
Extremities: No evidence of cyanosis or edema
Neuro: AAOx3. CN II-XII grossly intact. Fluid speech and steady gait. No focal neurologic deficits.
Psychiatric: Normal affect.
Course
<Suri Ellsworth PA-C - Last Filed: 08/16/25 12:29>
Orders/Labs/Results
Orders:
Orders
08/15/25 15:16
Electrocardiogram (*1) Urgent
Reason for Study: Vertigo / Dizzy
CT Head W/o Iv Contrast Urgent
Comment: frontal head strike secondary to dizziness
Reason For Exam: dizziness for 4 days, also had fall yesterday
08/15/25 15:17
EKG- Treatment ONCE
Test Result ONCE
08/15/25 15:44
Complete Blood Count/With Diff Urgent
Comprehensive Metabolic Panel Urgent
HCG, Serum Qualitative Screen Urgent
08/15/25 21:46
0.9% Sodium Chloride 1000 ml [Nss] 1,000 ml IV BOLUS
Acetaminophen [Tylenol] 1,000 mg PO NOW STA
08/15/25 22:02
COVID-19 Antigen Urgent
Source: Nasal Swab
Influenza A+B Rapid Molecular Urgent
BETH Source: Nasal Swab
Specimen Description:
08/15/25 22:26
CT Head & Neck Angio W/wo IV Urgent
Comment:
Reason For Exam: Dizziness, vomiting; hx cerebellar CVA
08/16/25 03:09
Admit/Transfer Patient As Directed
Co-Sign Provider:
Level of Care: Observation services
Assign to:: Telemetry
Physician / Group: Arjun
Diagnosis: Dizziness, N/V
Reason for Telemetry: CVA/TIA
Date to Stop Telemetry: 08/19/25
Time to Stop Telemetry: 11:00
PRN Pain Medication Management As Directed
May give lesser potent ordered pain med per pt: Yes
preference::
Protocol:: Medication orders for pain may be administered in a
manner that supports deferring to patient preference
when the pt is:
- Requesting an ordered lesser potent pain medication.
Least to most potent pain medications are defined
as: acetaminophen < NSAID < tramadol < opioids
(morphine, oxycodone, hydromorphone).
- Requesting a lesser dose of the same medication IF
ORDERED.
- Requesting a less intrusive route of administration
if both routes are prescribed by the provider (PO <
IV).
08/16/25 03:10
Code Status As Directed
Resuscitation Status: Full Code
08/16/25 05:26
Acetaminophen [Tylenol] 650 mg PO Q4HPRN PRN
Dextrose 50%-Water [Dextrose 50% Syringe] 12.5 grams IV [id number] PRN
Diazepam [Valium] 5 mg PO TIDPRN PRN
Glucagon [GlucaGen] 1 mg IM PRN PRN
Lactated Ringers [Lr] 1,000 ml IV 100 mls/hr
08/16/25 05:26
Activity As Directed
Activity Level: Ambulate
With Assistance
Bedside Glucose Monitoring As Directed
Frequency: AC&HS
Additional Instructions:: Change to q6h if pt on TPN, tube feeding or not eating
EKG with chest pain [ECG as needed] As Directed
ECG as needed for:: Chest Pain
I/O [Intake/ Output] As Directed
Frequency: Per unit guidelines
Neurological Checks As Directed
Frequency: q4h
Orthostatic Vital Signs As Directed
Orthostatic VS Frequency: BID
Vital Signs As Directed
Frequency: Per unit guidelines
Weight As Directed
Frequency: Daily
Oxygen Therapy [O2 Therapy] [RESP] Routine
Titrate/Wean O2 to maintain O2 sat greater than (%): 94
Ot Eval And Treat Routine
PT Consult [Pt Eval And Treat] Routine
Treatment: Vestibular Eval
Activity Level: Ambulate
With Assistance
08/16/25 06:00
MR Brain Without Contrast IN AM
Comment:
Reason For Exam: CVA / TIA
Recent pill cam endoscopy?: No
08/16/25 07:30
Insulin Aspart Corrective Low [Novolog Flexpen-Low Resistance] See Protocol SC AC
08/16/25 08:00
Docusate W/Senna [Senokot-S] 1 tablet PO BID
FOLic ACID [Folvite] 1 mg PO DAILY
Ferrous Sulfate [Feosol] 325 mg PO DAILY
Lamotrigine [Lamictal] 200 mg PO DAILY
[place] Carbonate Ext. Release [Eskalith ER (Extended Release)] 450 mg PO BID
Methadone HCl [Methadone 100 mg/10 ml] 84 mg PO ONCE ONE
Polyethylene Glycol Powder [Miralax] 17 grams PO DAILY
08/16/25 11:00
Basic Metabolic Panel IN AM
Cardiovascular Evaluation IN AM
Complete Blood Count/No Diff IN AM
[place] Routine
TSH Reflex To Free T4 Routine
08/16/25 18:00
Atorvastatin [Lipitor] 80 mg PO QPM
Rivaroxaban [Xarelto] 20 mg PO QPM
08/16/25 22:00
Clonidine [Catapres] 0.1 mg PO HS
Gabapentin [Neurontin] 200 mg PO HS
Pantoprazole [Protonix] 40 mg PO HS
Quetiapine Fumarate [Seroquel] 200 mg PO HS
08/19/25 11:00
DC Protocol for Telemetry ONCE
Abnormal Lab Results
08/15/25
15:44
WBC 14.1 H 10^3/uL
(4.8-10.8)
MCV 79.2 L fL
(81.0-99.0)
MCH 25.8 L pg
(27.0-31.0)
MCHC 32.6 L g/dL
(33.0-37.0)
RDW 16.2 H %
(11.5-14.5)
Plt Count 460 H 10^3/uL
(130-400)
Absolute Neuts (auto) 10.5 H 10^3/uL
(1.4-6.5)
Sodium 132 L mmol/L
(135-145)
Carbon Dioxide 19 L mmol/L
(22-30)
Glucose 221 H mg/dl
(70-99)
08/15/25 15:44
08/15/25 15:44
Vital Signs
Initial and Last Documented VS:
Initial Vital Signs
Temp Pulse Resp BP Pulse Ox
98.1 F 90 14 148/67 99
08/15/25 15:11 08/15/25 15:11 08/15/25 15:11 08/15/25 15:11 08/15/25 15:11
Last Documented Vital Signs
Temp Pulse Resp BP Pulse Ox
97.8 F 53 18 118/64 95
12/16/25 11:37 08/16/25 11:37 08/16/25 11:37 08/16/25 11:37 08/16/25 11:37
<Elena Hernandez MD - Last Filed: 08/15/25 23:43>
Orders/Labs/Results
Orders:
Orders
08/15/25 15:16
Electrocardiogram (*1) Urgent
Reason for Study: Vertigo / Dizzy
CT Head W/o Iv Contrast Urgent
Comment: frontal head strike secondary to dizziness
Reason For Exam: dizziness for 4 days, also had fall yesterday
08/15/25 15:17
EKG- Treatment ONCE
Test Result ONCE
08/15/25 15:44
Complete Blood Count/With Diff Urgent
Comprehensive Metabolic Panel Urgent
HCG, Serum Qualitative Screen Urgent
08/15/25 21:46
0.9% Sodium Chloride 1000 ml [Nss] 1,000 ml IV BOLUS
Acetaminophen [Tylenol] 1,000 mg PO NOW STA
08/15/25 22:02
COVID-19 Antigen Urgent
Source: Nasal Swab
Influenza A+B Rapid Molecular Urgent
BETH Source: Nasal Swab
Specimen Description:
08/15/25 22:26
CT Head & Neck Angio W/wo IV Urgent
Comment:
Reason For Exam: Dizziness, vomiting; hx cerebellar CVA
08/16/25 03:09
Admit/Transfer Patient As Directed
Co-Sign Provider:
Level of Care: Observation services
Assign to:: Telemetry
Physician / Group: Arjun
Diagnosis: Dizziness, N/V
Reason for Telemetry: CVA/TIA
Date to Stop Telemetry: 08/19/25
Time to Stop Telemetry: 11:00
PRN Pain Medication Management As Directed
May give lesser potent ordered pain med per pt: Yes
preference::
Protocol:: Medication orders for pain may be administered in a
manner that supports deferring to patient preference
when the pt is:
- Requesting an ordered lesser potent pain medication.
Least to most potent pain medications are defined
as: acetaminophen < NSAID < tramadol < opioids
(morphine, oxycodone, hydromorphone).
- Requesting a lesser dose of the same medication IF
ORDERED.
- Requesting a less intrusive route of administration
if both routes are prescribed by the provider (PO <
IV).
08/16/25 03:10
Code Status As Directed
Resuscitation Status: Full Code
08/16/25 05:26
Acetaminophen [Tylenol] 650 mg PO Q4HPRN PRN
Dextrose 50%-Water [Dextrose 50% Syringe] 12.5 grams IV [id number] PRN
Diazepam [Valium] 5 mg PO TIDPRN PRN
Glucagon [GlucaGen] 1 mg IM PRN PRN
Lactated Ringers [Lr] 1,000 ml IV 100 mls/hr
08/16/25 05:26
Activity As Directed
Activity Level: Ambulate
With Assistance
Bedside Glucose Monitoring As Directed
Frequency: AC&HS
Additional Instructions:: Change to q6h if pt on TPN, tube feeding or not eating
EKG with chest pain [ECG as needed] As Directed
ECG as needed for:: Chest Pain
I/O [Intake/ Output] As Directed
Frequency: Per unit guidelines
Neurological Checks As Directed
Frequency: q4h
Orthostatic Vital Signs As Directed
Orthostatic VS Frequency: BID
Vital Signs As Directed
Frequency: Per unit guidelines
Weight As Directed
Frequency: Daily
Oxygen Therapy [O2 Therapy] [RESP] Routine
Titrate/Wean O2 to maintain O2 sat greater than (%): 94
Ot Eval And Treat Routine
PT Consult [Pt Eval And Treat] Routine
Treatment: Vestibular Eval
Activity Level: Ambulate
With Assistance
08/16/25 06:00
MR Brain Without Contrast IN AM
Comment:
Reason For Exam: CVA / TIA
Recent pill cam endoscopy?: No
08/16/25 07:30
Insulin Aspart Corrective Low [Novolog Flexpen-Low Resistance] See Protocol SC AC
08/16/25 08:00
Docusate W/Senna [Senokot-S] 1 tablet PO BID
FOLic ACID [Folvite] 1 mg PO DAILY
Ferrous Sulfate [Feosol] 325 mg PO DAILY
Lamotrigine [Lamictal] 200 mg PO DAILY
[place] Carbonate Ext. Release [Eskalith ER (Extended Release)] 450 mg PO BID
Methadone HCl [Methadone 100 mg/10 ml] 84 mg PO ONCE ONE
Polyethylene Glycol Powder [Miralax] 17 grams PO DAILY
08/16/25 11:00
Basic Metabolic Panel IN AM
Cardiovascular Evaluation IN AM
Complete Blood Count/No Diff IN AM
[place] Routine
TSH Reflex To Free T4 Routine
08/16/25 18:00
Atorvastatin [Lipitor] 80 mg PO QPM
Rivaroxaban [Xarelto] 20 mg PO QPM
08/16/25 22:00
Clonidine [Catapres] 0.1 mg PO HS
Gabapentin [Neurontin] 200 mg PO HS
Pantoprazole [Protonix] 40 mg PO HS
Quetiapine Fumarate [Seroquel] 200 mg PO HS
08/19/25 11:00
DC Protocol for Telemetry ONCE
Abnormal Lab Results
08/15/25
15:44
WBC 14.1 H 10^3/uL
(4.8-10.8)
MCV 79.2 L fL
(81.0-99.0)
MCH 25.8 L pg
(27.0-31.0)
MCHC 32.6 L g/dL
(33.0-37.0)
RDW 16.2 H %
(11.5-14.5)
Plt Count 460 H 10^3/uL
(130-400)
Absolute Neuts (auto) 10.5 H 10^3/uL
(1.4-6.5)
Sodium 132 L mmol/L
(135-145)
Carbon Dioxide 19 L mmol/L
(22-30)
Glucose 221 H mg/dl
(70-99)
08/15/25 15:44
08/15/25 15:44
Vital Signs
Initial and Last Documented VS:
Initial Vital Signs
Temp Pulse Resp BP Pulse Ox
98.1 F 90 14 148/67 99
08/15/25 15:11 08/15/25 15:11 08/15/25 15:11 08/15/25 15:11 08/15/25 15:11
Last Documented Vital Signs
Temp Pulse Resp BP Pulse Ox
97.8 F 53 18 118/64 95
08/16/25 11:37 08/16/25 11:37 08/16/25 11:37 08/16/25 11:37 08/16/25 11:37
<Suri Ellsworth PA-C - Last Filed: 08/16/25 12:29>
MDM/Problems Addressed
Differential Diagnosis Includes:
Not limited to: Viral gastroenteritis, electrolyte abnormalities, vestibular neuritis, BPPV, M�ni�re's disease, CVA, etc.
MDM/Problems Addressed:
49-year-old female with four days of vertigo associated with chills and visual changes. History of cerebellar infarct in fact 7 months ago currently anti coagulated on xarelto.
Vitals stable. On exam, patient appears in no distress. Cardio/pulmonary assessment unremarkable. Abdominal exam benign. She is alert and oriented without any focal neurologic. No nystagmus or ataxia.
NIH 0.
Differential broad. Given chills and G.I. symptoms - possible viral illness, vestibular neuritis. Symptoms are not clearly positional in nature with lower suspicion for BPPV.
While she has no neurologic symptoms on exam� with relatively recent hx of CVA feel she is at very increased risk for repeat event.
Labs reveal a leukoytosis which could indicate underlying infectious process vs reactive from vomiting. CTA head/neck without acute findings.
Patient has been resting comfortably. She has not had any episodes of vomiting in ED. While work-up in ED negative, given history � feel this warrants admission for further imaging, possible MRI to rule out acute CVA. Patient accepted to
hospitalist service in stable condition.
Chronic conditions affecting care:
History of cerebellar CVA
Acute Exacerbation and/or Progression of Chronic Illness:
N/A
<Suri Ellsworth PA-C - Last Filed: 08/16/25 12:29>
*Radiology
Radiology exam reviewed: radiology read reviewed
*Pulse Oximetry
SaO2: 99
Oxygen Mode of Delivery: Room air
Patient hypoxic: no
*EKG
Interpreted by ED Provider?: Yes
EKG Intrepretation Date: 08/16/25
Interpretation: normal
Comparison EKG: no changes
Heart Rate: 80
Rate: normal
Rhythm: sinus
[place]: normal axis
Interval: normal QT interval
QRS Pattern: normal QRS
Ischemia: no ischemia
*Merchandise Pickup/Receiving Associate Interpretation
Rate: normal
Interpretation: normal
Heart Rate: 62
Rhythm: sinus
*Critical Care Note
Total Time (30-74mins, 75-104mins- exclusive of procedures): Not Applicable
Data Reviewed
Review of Other/Old Records Reveals: Discharge Summary (I personally reviewed discharge summary from 01/18/2025 after admission for cerebellar infarct)
<Suri Ellsworth PA-C - Last Filed: 08/16/25 12:29>
Patient Management
Discussion with other providers: Hospitalist
ED Attending Note
<Suri Ellsworth PA-C - Last Filed: 08/16/25 12:29>
-
Portions of this chart may have been created with voice recognition software.� Occasional wrong word or��sound alike� substitutions may have occurred due to the inherent limitations of voice recognition software.
<Elena Hernandez MD - Last Filed: 08/15/25 23:43>
ED Attending Note
Patient seen and examined by attending physician: Yes
I performed the substantive portion of visit, reviewed & personally made and approve the management plan that is documented in note by myself or SARAI.: Yes
ED Attending Note:
49-year-old female states for the last few days she is having intermittent episodes of severe vertigo associated with nausea and vomiting. She also notes episodes of diplopia. She currently feels vertigo, but denies visual changes at this time.
She denies numbness, tingling, focal weakness, chest pain, shortness of breath, fever, chills, abdominal pain, dysarthria, dysphagia, or other complaints. On exam, patient is awake oriented x 3. No nystagmus noted on exam, EOMI, no photophobia.
[id number] normal bilaterally. Motor 5 out of 5 upper equal lower bilaterally. Sensation intact throughout. Visual العلي intact. Cranial nerves II through XII intact. Patient has a history of aortic thrombus and left vertebral artery
stenosis and is fully anticoagulated, history of cerebellar infarct, high risk for recurrent events. She will be given symptom management here and admitted for further testing etc. Noncontrast CT pending at this time. Patient is not a candidate
for TNK given NIH of 0, intermittent episodes, etc.
Discharge Plan
Departure
Patient Disposition: Admit
Date of Disposition: 08/16/25
Time of Disposition: 00:56
Presentation/result/management discussed w/ accepting MD/DO: Hospitalist
Discharge Problem:
Dizziness, Vomiting
Interventions
Interventions:
*General Assessment Last Done: 08/15/25 21:34
*Neglect/Abuse Screening Last Done: 08/15/25 21:34
*ED COVID-19 Vaccine History Last Done: 08/15/25 21:34
*ED Influenza Vaccine History Last Done: 08/15/25 21:34
[facility] Fall Risk Assessment Tool Last Done: 08/15/25 21:36
*Risk Screen - Suicide (C-SSRS) Last Done: 08/15/25 21:34
*Nursing Disposition Last Done: 08/16/25 05:33
ED- Neurological Assessment Last Done: 08/15/25 21:37
ED- Cardiac Assessment Last Done: 08/15/25 21:37
ED Swallowing Screen Last Done: 08/15/25 21:50
Discharge Date and Time
Discharge Date/Time: 08/16/25 05:34
[2025-08-15 22:00] VITALS: BP 111/60
[2025-08-15] MEDS: TYLENOL 1000 MG PO (22:01)
[2025-08-15] MEDS: NSS 1000 IV (22:01)
[2025-08-15 22:33] LABS: COVID-19 Antigen Negative (Negative)
[2025-08-16] VITALS (8 sets, daily range): BP systolic 97–123; BP diastolic 57–73; PULSE 59–82; BMI 34.3
--- NOTE | 2025-08-16 02:25 | EDRN ---
Patient is sleeping at this time, vss, call diallo in reach.
--- NOTE | 2025-08-16 03:12 | HPS.HSE ---
Family Physician
-
Family Physician: Berny Najera MD
Chief Complaint
-
Vision Changes, N/V
History of Present Illness
Patient is a 49y F with PMH significant for IVDA on methadone and prior cerebellar stroke who presents to ED complaining of vision changes and dizziness. Patient states that symptoms have been present for about 4 days now. She describes blurry
and double vision. She notes dizziness, unsteady gait and multiple episodes of N/V at home. With 4 days of persistent symptoms, she presented to the ED for further evaluation.
Patient states that current symptoms are similar to her prior stroke presentation. She notes that she has been compliant with her current med regimen - including daily Xarelto.
No recent cough, fevers / chills, sore throat, etc.
Medical History
Past Medical History
Past Medical History: Reports Other
Additional Past Medical History:
Cerebellar Stroke
PFO / Aortic Thrombus
ASCVD
DM-II
Iron Deficiency Anemia
Past Surgical History: Reports Other
Additional Past Surgical History:
Tubal Ligation
Social History
Tobacco: Smoker (Current every day smoker.)
Alcohol: None
Drug: Former User (IVDA now maintained on methadone.)
Family History
Family History: Not pertinent
Allergies / Home Medications
Allergies reflects when Allergies were last updated in [facility].
Home Medications with original date entered in [facility]
Allergy/Medication List:
Allergies
Allergy/AdvReac Type Severity Reaction Status Date / Time
No Known Allergies Allergy Verified 01/12/25 18:29
Home Medications
methadone 10 mg/mL oral concentrate (Methadose) 100 mg PO DAILY 10/25/19
clonidine HCl 0.1 mg tablet 0.1 mg PO HS 01/13/25
lamotrigine 200 mg tablet (Lamictal) 200 mg PO DAILY 01/13/25
lithium carbonate 450 mg tablet,extended release 450 mg PO BID 01/13/25
quetiapine 200 mg tablet (Seroquel) 200 mg PO HS 01/13/25
omeprazole 40 mg capsule,delayed release 40 mg PO DAILY 01/14/25
atorvastatin 80 mg tablet 80 mg PO QPM #30 tabs 01/18/25
ferrous sulfate 325 mg (65 mg iron) tablet 325 mg PO DAILY #30 tabs 01/18/25
folic acid 1 mg tablet 1 mg PO DAILY 30 days #30 tabs 01/18/25
gabapentin 100 mg capsule 200 mg (2 x 100 mg) PO HS 30 days #60 caps 01/18/25
glipizide 2.5 mg tablet 2.5 mg PO BID #60 tabs 01/18/25
metformin 1,000 mg tablet 1,000 mg PO BIDWMEAL #60 tabs 01/18/25
polyethylene glycol 3350 17 gram oral powder packet (Miralax) 17 g PO DAILY #30 ea 01/18/25
rivaroxaban 20 mg tablet (Xarelto) See Rx Instructions .Route .COMPLEX #49 tabs 01/18/25
sennosides 8.6 mg-docusate sodium 50 mg tablet 1 tab PO BID #60 tabs 01/18/25
Review of Systems
-
History Source: Patient
A 12 point ROS was completed and negative except as noted: Yes
Constitutional: Denies Fever, Fatigue or Chills
Respiratory: Denies Cough or Trouble Breathing
Cardiac: Denies Chest Pain or Palpitations
Abdomen/GI: Reports Nausea and Vomiting; Denies Abdominal Pain or Diarrhea
: Denies Dysuria or Frequency
Musculoskeletal: Denies Joint Pain or Edema
Neurological: Reports Dizzy; Denies Headache
Psych: Denies Depression or Anxiety
Physical Exam
Vital Signs
Vital Signs
Temp Pulse Resp BP Pulse Ox
98.1 F 65 15 100/60 99
08/15/25 15:11 08/16/25 02:15 08/16/25 02:15 08/16/25 02:00 08/15/25 21:49
Physical Exam
General: Other (49y F in no acute distress.)
HEENT: Moist mucous membranes and PERRLA
Respiratory: Clear; No Wheezes, Rales or Rhonchi
Cardiac: S1/S2 and Regular Rhythm; No Murmur
GI: Soft, Non Tender, Non Distended and Normal Bowel Sounds
Musculoskeletal: No Clubbing, No Cyanosis and No Edema
Neuro: AO x 3, Nonfocal/grossly intact and Other (Normal [id number].)
Laboratory Results
-
08/15/25 15:44
08/15/25 15:44
Laboratory Results
Total Bilirubin 0.4 mg/dl (0.2-1.3) 08/15/25 15:44
AST 25 U/L (14-36) 08/15/25 15:44
ALT 33 U/L (0-35) 08/15/25 15:44
Alkaline Phosphatase 118 U/L (38-126) 08/15/25 15:44
Impression/Plan
-
A/P: Patient is a 49y F with PMH significant for IVDA, aortic thrombus formation and suspected embolic cerebellar stroke who presents to ED complaining of vision changes, dizziness and N/V x 4 days.
Vertigo
ASCVD
History of Cerebellar Stroke
PFO
- Observe overnight for further evaluation and treatment.
- Patient feels improved at present.
- Monitor for any new / recurrent symptoms.
- CT head / CTA with no new findings or abnormalities.
- Check MR brain in AM given prior history. ? new posterior CVA.
- PT / OT evaluations.
- Continue current med regimen for now including Xarelto.
- Neurology evaluation if any significant new findings on imaging.
DM-II
- Stable. Hold PO medications acutely.
- Follow glucose and cover with SSI as needed.
- Update A1C.
Iron Deficiency Anemia
- Stable. Hgb improved from prior.
- Continue iron supplementation.
Bipolar Disorder
- Continue current medications with no changes.
- Check lithium level.
Opioid Dependence
History of IVDA
- Stable. Continue usual methadone.
DVT Prophylaxis: On Xarelto
Code Status: Full
[2025-08-16] MEDS: LR 1000 IV (06:00)
[2025-08-16 08:11] LABS: Glucose - Point of Care 138 mg/dl (70-99)
[2025-08-16] MEDS: NOVOLOG FLEXPEN-LOW RESISTANCE SC (08:35)
--- NOTE | 2025-08-16 10:18 | CON.NEURO ---
Addendum entered and electronically signed by Himanshu Elena MD 08/16/25 13:14:
Studies reviewed.
I have personally examined the patient. I reviewed and agree with the FIRE BEHAVIOR ANALYST's Note.
My addenda:
Awake, alert, interactive. No acute distress.
Speech intact.
Follows 2-step requests w/o difficulty. No tremor.
Extra-ocular movements grossly intact.
Facial movements full and symmetric. Hearing intact to normal conversational volume.
Normal UE movements bilaterally.
Neck: full ROM.
Chest: no dyspnea
Heart: no JVD
Ext: (-) Clubbing, (-) Cyanosis, (-) Edema
IMPRESSIONS/RECOMMENDATIONS:
Abrupt onset of worsening dizziness
Most likely metabolic in nature based on the patient's continuous symptomatology and absence of acute changes by MRI of brain. Unclear if the metabolic nature is due to decreased ferritin levels or other etiology
Provide iron by IV and restart patient's iron by mouth at bedtime to correct low ferritin levels
Follow lithium levels
Patient to be evaluated by administrative intern Lindsey Huddleston in [place] due to need for ocular retraining
Continue current medications
D/W patient
All questions answered.
Will continue to follow patient.
Original Note:
Documented by User: Lacey Alcazar NP 08/16/25 12:11
Neuro Assessment/Plan
Assessment
Patient is a 49 year old female with PMH significant for IVDA on methadone and prior cerebellar stroke (December 2024) who presented to [facility] on 08/15/2025 complaining of vision changes and dizziness.
Vascular US 01/13/25
1. No significant stenosis bilateral cervical internal carotid arteries.
2. Antegrade flow is noted in the right vertebral artery. Left vertebral artery with possible partial occlusion and abnormal waveforms suggestive of possible vertebral artery or proximal subclavian artery disease.
3. Incidental nodule in the left lobe of thyroid noted measuring 1.3 x 0.8 x 1 cm..
Brain MRI 01/13/25: Large acute infarct in the left cerebellum. Mild petechial hemorrhage. 2 tiny acute infarcts in the right cerebellum. 2 or 3 tiny cortical foci of increased signal intensity on diffusion are noted in the left parietal-occipital
lobe. It is difficult to determine if artifactual, or associated with real tiny acute cortical infarct. Absent flow in the left vertebral artery.
Head CT 08/15/25: no acute intracranial abnormality
Head/neck CTA 08/15/25: No acute intracranial hemorrhage. The cervical carotid and vertebral arteries are patent without significant plaque, stenosis, occlusion, or dissection. No coquille of [place] region aneurysm or stenosis. No cerebral artery
aneurysm, significant plaque, stenosis, thrombus, or occlusion.
Brain MRI 08/16/25: No acute intracranial abnormality. Stable large chronic infarct in the left cerebellum.
Labs: Ferritin 9.7, Swartz 0.3, Hgb A1C 9.9, Cholesterol 143, LDL 86
Plan
Impression: abrupt onset of dizziness and vision changes in a patient with a prior cerebellar stroke, most likely metabolic given ferritin levels low vs stroke recrudesce given brain MRI negative for acute ischemic stroke
-continue rivaroxaban and atorvastatin for secondary stroke prevention
-PT/OT evaluations
-start iron 125 mg IV now and 325 mg PO daily to increase levels as this can be causing her symptoms
-may consider meeting with Dr. Lindsey Huddleston administrative intern outpatient for vision rehabilitation
All questions encouraged and answered, plan of care discussed with Dr. Elena and patient
Consultation
Order
Date of Consultation: 08/16/25
Requesting Provider: Hospitalist/ Dr. Abraham Díaz
Reason for Consult: dizziness
Subjective/Objective
Subjective Data
Date of Service: August 16, 2025
Patient is a 49 year old female with PMH significant for IVDA on methadone and prior cerebellar stroke who presented to [facility] on 08/15/2025 complaining of vision changes and dizziness. Patient states that symptoms have been present for about 4 days
now. She describes blurry and double vision. She notes dizziness, unsteady gait and multiple episodes of N/V at home. She states she has diplopia with right on top of left which is sporadic 5-6 times a day lasting for few minutes than dissipates.
With 4 days of persistent symptoms, she presented to the ED for further evaluation. Nauseous several times throughout the day and usually vomits at least once daily. Patient states that current symptoms are similar to her prior stroke presentation.
She notes that she has been compliant with her current med regimen including daily Xarelto. She denies headache, denies neck/back pain. Denies weakness, numbness or tingling in upper or lower extremities. No changes in bowel/bladder. Head CT did not
show acute intracranial abnormality. Head/neck CTA negative for LVO. NIHSS 0. Not a TNK candidate due to being outside the window and on anticoagulation.
Objective Data
Vital Signs
Temp Pulse Resp BP Pulse Ox
97.6 F 53 18 111/62 96
08/16/25 08:13 08/16/25 08:13 08/16/25 08:13 08/16/25 08:13 08/16/25 08:13
Sodium 132 mmol/L (135-145) L 08/15/25 15:44
Potassium 3.7 mmol/L (3.5-5.1) 08/15/25 15:44
BUN 10 mg/dl (7-17) 08/15/25 15:44
Glucose 221 mg/dl (70-99) H 08/15/25 15:44
Calcium 10.1 mg/dl (8.4-10.2) 08/15/25 15:44
Patient Allergies
No Known Allergies Allergy (Verified 01/12/25 18:29)
CVA Assessment
Onset of Stroke Symptoms
Onset of symptoms known: No
Time pt last seen normal is known: No
NIH Stroke Score
Level of Consciousness: 0 - Alert
LOC Questions: 0-Answers both correctly
LOC Commands: 0-Performs both correctly
Best Horizontal Gaze: 0-Normal
Visual Arreola: 0=Normal, no visual loss
Facial Palsy: 0=Normal, symmetrical
Motor - Right Arm: 0=No drift 10 seconds
Motor - Left Arm: 0=No drift 10 seconds
Motor - Right Le-No drift 5 seconds
Motor - Left Le-No drift 5 seconds
Limb Ataxia: 0-Absent
Sensation: 0-Normal
Best Language: 0-No aphasia
Dysarthria: 0-Normal
Extinction and Inattention: 0-No abnormality
NIH Total Score:: 0
Tenecteplase Contraindications
Inclusion and Exclusion criteria reviewed: Yes
Reasons for NON-Tx with Thrombolytics ABSOLUTE Exclusions: Patient taking oral anticoagulant and last dose within 48 hours and Time-out of window
IAT Contraindications: NIHSS < 6
Modified Rina Score (MRS)
-
Modified Knott Scale (mRS): No significant disability. Able to carry out usual activities.
Score: 1
Physical Exam
-
General: Older than Stated Age
HEENT: Normocephalic and Atraumatic
Neck: Full Range of Motion
Respiratory: No Dyspnea
Cardiac: No JVD
GI: Non-distended
Skin: Unremarkable
Extremities: No Clubbing, No Cyanosis and No Edema
Psych: Unremarkable
Extended Neurological Exam
Mood & Affect: Mood Unremarkable
Attention Span & Concentration: Awake, Alert, Interactive and No Difficulty with 2 Step Request
Memory: Unremarkable
Speech: Quality Unremarkable, Quantity Unremarkable and Rate of Production Unremarkable
Cranial Nerve VII: Facial Symmetry: Normal Facial Symmetry
Cranial Nerve VIII: Hearing: Unremarkable Hearing to Normal Conversational Volume
Muscle Strength, Overall: Full Throughout
Pronator Drift: No Drift in Upper Extremities and No Drift in Lower Extremities
Coordination: [id number] Testing Unremarkable
Gait & Station: Romberg Test Negative and Other (difficulty with heel and toe standing, ok tandem)
Data Reviewed
-
CT-A: Report Reviewed and Image Reviewed
CT Head: Report Reviewed and Image Reviewed
MRI Head: Report Reviewed and Image Reviewed
Medical Test Reports: Report Reviewed
Labs: Report Reviewed
Lipid Profile: Report Reviewed
HgbA1C: Report Reviewed
Reviewed with: Physician and Patient
Old Records: Summarized
Medications
-
Active Medications
Generic Name Dose Route Start Last Admin
Trade Name Freq PRN Reason Stop Dose Admin
Acetaminophen 650 mg 08/16/25 05:26
Acetaminophen 325 Mg Tablet PO 09/13/25 05:25
Q4HPRN PRN
Mild Pain / Temp > 101
Atorvastatin Calcium 80 mg 08/16/25 18:00
Atorvastatin (Lipitor) 80 Mg Tablet PO 09/13/25 17:59
QPM LETITIA
Clonidine HCl 0.1 mg 08/16/25 22:00
Clonidine 0.1 Mg Tablet PO 09/13/25 21:59
HS LETITIA
Dextrose 12.5 grams 08/16/25 05:26
Dextrose 50% (0.5 Grams/Ml) 50 Ml Syringe IV 09/13/25 05:25
[id number] PRN
hypoglycemia
Protocol
Diazepam 5 mg 08/16/25 05:26
Diazepam 5 Mg Tablet PO 09/13/25 05:25
TIDPRN PRN
Dizziness, Nausea
Ferrous Sulfate 325 mg 08/16/25 08:00
Ferrous Sulfate 325 Mg Tablet PO 09/13/25 07:59
DAILY LETITIA
Folic Acid 1 mg 08/16/25 08:00
Folic Acid 1 Mg Tablet PO 09/13/25 07:59
DAILY LETITIA
Gabapentin 200 mg 08/16/25 22:00
Gabapentin 100 Mg Capsule PO 09/13/25 21:59
HS LETITIA
Glucagon 1 mg 08/16/25 05:26
Glucagon 1 Mg Vial IM 09/13/25 05:25
PRN PRN
hypoglycemia
Protocol
Lactated Ringer's 1,000 mls @ 100 mls/hr 08/16/25 05:26 08/16/25 06:00
Lr IV 1,000 mls
.Q10H LETITIA Administration
Insulin Aspart 0 units 08/16/25 07:30 08/16/25 08:35
Insulin Aspart Low Resistance 300 Units/3 Ml Pen.Injctr SC 09/13/25 07:29 Not Given
AC LETITIA
Protocol
Lamotrigine 200 mg 08/16/25 08:00
Lamotrigine 100 Mg Tablet PO 09/13/25 07:59
DAILY LETITIA
Swartz Carbonate 450 mg 08/16/25 08:00
Swartz Carbonate 450 Mg Extended Release Tablet PO 09/13/25 07:59
BID LETITIA
Methadone HCl 83 mg 08/17/25 08:00
Methadone Oral Liquid (100 Mg/10 Ml) Cup PO 08/23/25 08:01
DAILY LETITIA
Methadone HCl 82 mg 08/24/25 08:00
Methadone Oral Liquid (100 Mg/10 Ml) Cup PO 08/30/25 08:01
DAILY LETITIA
Pantoprazole Sodium 40 mg 08/16/25 22:00
Pantoprazole 40 Mg Delayed Release Tablet PO 09/13/25 21:59
HS LETITIA
Polyethylene Glycol 17 grams 08/16/25 08:00
Polyethylene Glycol Powder 17 Grams Packet PO 09/13/25 07:59
DAILY LETITIA
Quetiapine Fumarate 200 mg 08/16/25 22:00
Quetiapine 100 Mg Tablet PO 09/13/25 21:59
HS LETITIA
Rivaroxaban 20 mg 08/16/25 18:00
Rivaroxaban 20 Mg Tablet PO 09/13/25 17:59
QPM LETITIA
Senna/Docusate Sodium 1 tablet 08/16/25 08:00
Docusate W/Senna (Briana-Colace) Tablet PO 09/13/25 07:59
BID LETITIA
Home Medications
�Medication �Instructions �Recorded
methadone 10 mg/mL oral 100 mg PO DAILY 10/25/19
concentrate (Methadose)
clonidine HCl 0.1 mg tablet 0.1 mg PO HS 01/13/25
lamotrigine 200 mg tablet 200 mg PO DAILY 01/13/25
(Lamictal)
lithium carbonate 450 mg 450 mg PO BID 01/13/25
tablet,extended release
quetiapine 200 mg tablet (Seroquel) 200 mg PO HS 01/13/25
omeprazole 40 mg capsule,delayed 40 mg PO DAILY 01/14/25
release
atorvastatin 80 mg tablet 80 mg PO QPM #30 tabs 01/18/25
ferrous sulfate 325 mg (65 mg 325 mg PO DAILY #30 tabs 01/18/25
iron) tablet
folic acid 1 mg tablet 1 mg PO DAILY 30 days #30 tabs 01/18/25
gabapentin 100 mg capsule 200 mg (2 x 100 mg) PO HS 30 days 01/18/25
#60 caps
glipizide 2.5 mg tablet 2.5 mg PO BID #60 tabs 01/18/25
metformin 1,000 mg tablet 1,000 mg PO BIDWMEAL #60 tabs 01/18/25
polyethylene glycol 3350 17 gram 17 g PO DAILY #30 ea 01/18/25
oral powder packet (Miralax)
rivaroxaban 20 mg tablet (Xarelto) See Rx Instructions .Route 01/18/25
.COMPLEX #49 tabs
sennosides 8.6 mg-docusate sodium 1 tab PO BID #60 tabs 01/18/25
50 mg tablet
Past History
Past History
ED Past Medical History: NIDDM, Psychiatric and Other
ED Past Surgical History: Gynecological
Family/Social History
Tobacco: Smoker
Alcohol: Occasional
Drug: Former user and IVDA
Personal: Single
Living: with family

Documented by User: Himanshu Elena MD 08/16/25 13:11
CVA Assessment
NIH Stroke Score
NIH Total Score:: 0
Modified Knott Score (MRS)
-
Score: 1
[2025-08-16] MEDS: ESKALITH ER (EXTENDED RELEASE) 450 MG PO (10:48)
[2025-08-16] MEDS: FOLVITE 1 MG PO (10:48)
[2025-08-16] MEDS: LAMICTAL 200 MG PO (10:48)
[2025-08-16] MEDS: SENOKOT-S 1 TABLET PO (10:48)
[2025-08-16] MEDS: MIRALAX 17 GRAMS PO (10:48)
[2025-08-16 11:18] LABS: Hematocrit 36.1 % (37.0-47.0); Hemoglobin 11.8 g/dL (12.0-16.0); Mean Corp Hgb Conc. 32.7 g/dL (33.0-37.0); Mean Corpuscular Volume 79.9 fL (81.0-99.0); Platelet Count 390 10^3/uL (130-400); Red Cell Dist. Width 16.7 % (11.5-14.5)
[2025-08-16 11:35] LABS: Blood Urea Nitrogen 10 mg/dl (7-17); Calcium 9.9 mg/dl (8.4-10.2); Carbon Dioxide 23 mmol/L (22-30); Chloride 108 mmol/L (98-107); Estimated Creatinine Clearance 112 ml/min; Glucose 147 mg/dl (70-99); HDL Cholesterol 36 mg/dl; LDL Cholesterol, Calculated 86 mg/dl; Lithium 0.3 mmol/L (0.6-1.2); Potassium 3.9 mmol/L (3.5-5.1); Sodium 137 mmol/L (135-145); Very Low Density Lipoprotein 21 mg/dl (0-30); eGFR > 60.00
[2025-08-16] MEDS: METHADONE 100 MG/10 ML 84 MG PO (11:40)
[2025-08-16] MEDS: GLUCOPHAGE 1000 MG PO (11:41)
[2025-08-16] MEDS: GLUCOTROL 2.5 MG PO (11:44)
[2025-08-16 11:55] LABS: Glucose - Point of Care 174 mg/dl (70-99)
[2025-08-16] MEDS: NOVOLOG FLEXPEN-LOW RESISTANCE 1 UNITS SC (12:20)
--- NOTE | 2025-08-16 12:41 | W.PN.HOSP.TC ---
Today's Communication/Plan
-
DIscharge after PT sees
OT eval noted
Assessment / Plan
Assessment / Plan
49y F with PMH significant for IVDA on methadone and prior cerebellar stroke who presents to ED complaining of vision changes and dizziness.
MRI of the brain-no acute intracranial abnormality. Stable large chronic infarct in the left cerebellar
CTA of the head and neck-no acute intracranial hemorrhage. Cervical carotid and vertebral arteries are patent without significant plaque, stenosis, occlusion or dissection. No COW region aneurysm or stenosis.
EKG reviewed by me-sinus rhythm no ischemia
# Visual changes and vertigo
History of left cerebellar stroke
CT/CTA without any acute changes
MRI of the brain-no acute changes stable large chronic infarct in the left cerebellum
No signs of orthostatic hypotension
Neurology evaluation appreciated
Recommending outpatient optometry evaluation
OT also recommending outpatient OT for her symptoms.
PT OT
IV iron ordered
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
Current CTA does not comment about any vertebral artery occlusion which was seen on an ultrasound from 01/13/2025
PFO on FABRICIO-plan was for PFO closure as outpatient
Thrombus involving abdominal aorta
Antiphospholipid panel was negative
Patient is aware that she needs to follow-up with cardiology for the planned PFO closure
# Diabetes hemoglobin A1c-9.9 on 08/03/2025
Continue glipizide, metformin
Accu-Cheks and sliding scale coverage
# Bipolar disorder-check lithium level. Continue lithium, Lamictal, Seroquel, gabapentin, clonidine
# History of CVA-continue atorvastatin
# Left thyroid nodule-patient needs outpatient workup. TSH was normal 08/03/2025
# History of aortic thrombus formation
# Hypertension-on clonidine as outpatient
# History of iron deficiency anemia-continue p.o. iron
# History of IVDA-now sober-continue methadone. Pharmacy verified the dose. She is on a taper which is ordered
# GERD-continue PPI
# Smoking-cessation counseling
# Obesity with a BMI of 34
# DVT prophylaxis-Xarelto
# Full code
Discussed with pharmacy
Discussed with nursing
D/W Neurology
Follow-up care discussed with the patient in detail.
More than 30 minutes spent in discharge including
Final examination of the patient
Summarizing hospital stay
Instructions for continuing care to all relevant caregivers
Preparation of discharge records, prescriptions, and referral forms
Part of this note was created using voice recognition system. Occasional wrong word or��sound alike� substitutions may have inadvertently occurred due to the inherent limitations of voice recognition software. If noted kindly bring it to my
attention for correction.
Anticipated Discharge: Today
Subjective/Interval History
-
Date of Service: August 16, 2025
Objective Data
-
Labs:
Laboratory Results
08/16/25
11:00
WBC 9.2
Hgb 11.8 L
Hct 36.1 L
Plt Count 390
Sodium 137
Potassium 3.9
Chloride 108 H
Carbon Dioxide 23
BUN 10
Creatinine 0.7
Glucose 147 H
Calcium 9.9
Vital Signs:
Vital Signs
Temp Pulse Resp BP Pulse Ox
97.8 F 53 18 118/64 95
08/16/25 11:37 08/16/25 11:37 08/16/25 11:37 08/16/25 11:37 08/16/25 11:37
--- NOTE | 2025-08-16 12:51 | W.DS.TRANS ---
Addendum entered and electronically signed by Sharon Zuñiga MD 08/16/25 15:46:
DICTATION- [id number]
Original Note:
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
-
Discharge Instructions:
Discharge Diagnosis/Procedures Dizziness
History of stroke hypertension
PFO
Diabetes
Diet Diabetic, Carb Controlled
Activity As tolerated
Driving Restrictions As prior to admission
Other Services OT
Instructions:
Stand-Alone Forms:
Changes to Home Medications: No
Discharge Medications:
DC Medications w/original date entered in [facility]
atorvastatin 80 mg tablet 80 mg PO QPM High cholesterol #30 tabs 08/16/25
clonidine HCl 0.1 mg tablet 0.1 mg PO HS Blood pressure #0 tabs 08/16/25
ferrous sulfate 325 mg (65 mg iron) tablet 325 mg PO DAILY anemia #30 tabs 08/16/25
folic acid 1 mg tablet 1 mg PO DAILY Supplement 30 days #30 tabs 08/16/25
gabapentin 100 mg capsule 200 mg (2 x 100 mg) PO HS Neurological Condition 30 days #60 caps 08/16/25
glipizide 2.5 mg tablet 2.5 mg PO BID Diabetes #60 tabs 08/16/25
lamotrigine 200 mg tablet (Lamictal) 200 mg PO DAILY Mental Health/Anxiety #0 tabs 08/16/25
lithium carbonate 450 mg tablet,extended release 450 mg PO BID Mental Health/Anxiety #0 tabs 08/16/25
metformin 1,000 mg tablet 1,000 mg PO BIDWMEAL Diabetes #60 tabs 08/16/25
methadone 10 mg/mL oral concentrate (Methadose) 82 mg (8.2 mL) PO DAILY opiate abuse #0 mL 08/16/25
omeprazole 40 mg capsule,delayed release 40 mg PO DAILY Gastrointestinal issue #0 caps 08/16/25
polyethylene glycol 3350 17 gram oral powder packet (Miralax) 17 g PO DAILY Constipation #30 ea 08/16/25
quetiapine 200 mg tablet (Seroquel) 200 mg PO HS Mental Health/Anxiety #0 tabs 08/16/25
rivaroxaban 20 mg tablet (Xarelto) See Rx Instructions .Route .COMPLEX Blood clot prevention/tx #49 tabs 08/16/25
sennosides 8.6 mg-docusate sodium 50 mg tablet 1 tab PO BID Constipation #60 tabs 08/16/25
Home Medication Changes
Pending Results: No
--- NOTE | 2025-08-16 15:29 | CM ---
Patient seen at bedside on 1 acute. Patient stated that she lives with family in a one story home. Patient has no DME or needs at home. Patient PCP is Dr. Brandin Ngo and she uses the [facility] in [place]. Patient reviewed OBS form and signed form
placed on chart. CM will continue to follow for discharge planning needs.
Plan; home with no needs anticipated.
== END 2025-08-16 14:59 | disposition home or self-care (01) ==
LOC: 1 ACUTE 03:18
PROVIDERS: Emergency Medicine; Physician Assistant; ADMITTING PHYSICIAN Hospitalist; ATTENDING PHYSICIAN Hospitalist; CONSULT PHYSICIAN Psychiatry & Neurology Neurology; EMERGENCY PHYSICIAN Emergency Medicine; FAMILY PHYSICIAN Internal Medicine
DX: R42 Dizziness and giddiness (principal); I65.09 Occlusion and stenosis of unspecified vertebral artery; Z86.73 Personal history of transient ischemic attack (TIA), and cerebral infarction without residual deficits; E11.9 Type 2 diabetes mellitus without complications; F31.9 Bipolar disorder, unspecified; E04.1 Nontoxic single thyroid nodule; I10 Essential (primary) hypertension; D50.9 Iron deficiency anemia, unspecified; K21.9 Gastro-esophageal reflux disease without esophagitis; F17.200 Nicotine dependence, unspecified, uncomplicated; E66.9 Obesity, unspecified; Z68.34 Body mass index [BMI] 34.0-34.9, adult; Z79.01 Long term (current) use of anticoagulants; I25.10 Atherosclerotic heart disease of native coronary artery without angina pectoris; Q21.12 Patent foramen ovale; Z79.84 Long term (current) use of oral hypoglycemic drugs; Z79.899 Other long term (current) drug therapy; F11.20 Opioid dependence, uncomplicated; R29.700 NIHSS score 0; W19.XXXA Unspecified fall, initial encounter; Z98.51 Tubal ligation status
CPT/HCPCS: 70450; 70496; 70498; 70551; 80048; 80053; 80061; 80178; 82962; 84443; 84703; 85025; 85027; 87502; 87811; 93005; 97162; 97166; 99285; G0378; J2916; Q9967